=== PATIENT | female | born 1955 | race Caucasian/White ===

== ENCOUNTER → 2017-03-05 | Day surgery (SDC) | payer OTHER ==
[2017-02-27 09:13] VITALS: Ht 149.9 cm; Wt 64.1 kg
[~2017-03-05] VITALS: Ht 149.9 cm; Wt 64.1 kg
[~2017-03-05] MED LIST: ASPCH81X PO; ATOR-24 PO; BUDE1CAP6 PO; CETI10TA10 PO; CHOL1000 PO; CITA20TA4 PO; CYAN100020 PO; CYCL5TAB PO; FENTANYL CITRATE INJ 50 MCG/1 ML 2 ML VIAL ONE; FLUT0.15 NAE; FURO-85 PO; GABA-112 PO; GLC/500 PO; GLIP-199 PO; LIDOCAINE HCL 2% 2 ML VIAL (20MG/ML) ONE; LISI-789 PO; LNX125 PO; METHYLENE BLUE 0.5% 10 ML VIAL ONE; METO25TA56 PO; MIDAZOLAM HCL 1 MG/ML 2ML VIAL ONE; PHENYLEPHRINE 100MCG/ML 5ML SYR ONE; POTA20TA16 PO; PROPOFOL IV EMULSION 10 MG/ML 20 ML VIAL IV ONE; ROPI0.5T15 PO; ROPI1TAB PO; SODIUM CHLORIDE 0.9% 500ML 500 ML IV ONE; SPIR50TA2 PO; VNTHFA/IN INH
[2017-03-05 08:12] VITALS: TEMP 36.2
--- NOTE | 2017-03-05 08:54 | Endo History and Physical ---
History & Physical Date of Service: Mar 05, 2017. Chief Complaint: Crohns disease Referring Physician: Dr. Kellee Merida History of Present Illness Crohn's disease Past Medical History Gastrointestinal Disorder, Reflux, Heart Disease, CHF, Hypertension, COPD, Depression, [place] Past Surgical History Hx Cardiac Surgery: Yes (HEART CATH/NO STENTS) Hx Pacemaker: No Hx Abdominal Surgery: Yes ( X 2, HYSTERECTOMY, JAE, COLON RESECTION) Hx of Implantable Prosthesis: No Hx Post-Op Nausea and Vomiting: No Hx Cancer Surgery: No Hx Thoracic Surgery: No Hx Orthopedic: Yes (RT SHOULDER SX) Hx Urinary Tract Surgery: Yes (CYSTOSCOPY, STENT INSERTION, LITHOTRIPSY) Family History None Social History Smoking Status: Current Every Day Smoker Hx Substance Use: No Hx Alcohol Use: No Allergies Coded Allergies: Mercaptopurine (Verified Allergy, Intermediate, INFLAMED PANCREAS, 02/27/17 ) INFLAMED PANCREAS Nickel (Verified Allergy, Intermediate, breakout, 02/27/17) Erythromycin (Verified Allergy, Unknown, RASH, 02/27/17) Penicillins (Verified Allergy, Unknown, RASH, 02/27/17) Current Medications Reported Home Medications Medications Dose Route/Sig Max Daily Dose Days Date Category Dose Instructions Glucophage (Metformin Hcl) 500 Mg Tab 2 Tab PO QPM 02/27/17 Reported Glucophage (Metformin Hcl) 500 Mg Tab 500 Mg PO QAM 02/27/17 Reported Neurontin (Gabapentin) 100 Mg Cap 100 Mg PO TID 02/27/17 Reported Vitamin B12 (Cyanocobalamin) 1,000 Mcg Tab 1 Tab PO QPM 02/27/17 Reported Aspirin Chewable (Aspirin) 81 Mg Chew 2 Tab PO HS 02/27/17 Reported Ventolin Hfa (Albuterol) 200 Puffs/04124 Mcg Aers 2-4 Puffs INH Q6H PRN 02/27/17 Reported Flonase Allergy Relief (Fluticasone Propionate (Nasal)) 50 Mcg/Act Spr 1 [place] RUBEN DAILY PRN 02/27/17 Reported Zyrtec (Cetirizine Hcl) 10 Mg Tab 10 Mg PO QAM 02/27/17 Reported Entocort Ec (Budesonide) 3 Mg Cap 3 Cap PO TID 02/27/17 Reported Vitamin D3 (Cholecalciferol) 1,000 Unit Tab 1 Tab PO BID 02/27/17 Reported Requip (Ropinirole HCl) 1 Mg Tab 1 Mg PO HS 02/27/17 Reported Requip (Ropinirole HCl) 0.5 Mg Tab 0.5 Mg PO TID 02/27/17 Reported Glipizide Er (Glipizide) 10 Mg Tab 1 Tab PO BID 02/27/17 Reported Lopressor (Metoprolol Tartrate) 25 Mg Tab 25 Mg PO BID 02/27/17 Reported Flexeril (Cyclobenzaprine Hcl) 5 Mg Tab 5 Mg PO BID 02/27/17 Reported PRN Lipitor (Atorvastatin Calcium) 40 Mg Tab 40 Mg PO QPM 02/27/17 Reported Lasix (Furosemide) 20 Mg Tab 20 Mg PO QAM 02/27/17 Reported Klor-Con (Potassium Chloride) 20 Meq Tabcr 20 Meq PO QPM 02/27/17 Reported Aldactone (Spironolactone) 50 Mg Tab 50 Mg PO DAILY AFTERNOON 02/27/17 Reported Citalopram Hydrobromide 20 Mg Tab 1 Tab PO DAILY AFTERNOON 02/27/17 Reported Digoxin 0.125 Mg Tab 1 Tab PO QAM 02/27/17 Reported Zestril (Lisinopril) 2.5 Mg Tab 1 Tab PO QAM 02/27/17 Reported Vital Signs Weight (Kilograms): 64.09 Height (Feet): 4 Height (Inches): 11 Date Time Temp Pulse Resp B/P (MAP) Pulse Ox O2 Delivery O2 Flow Rate FiO2 03/05/17 08:12 36.2 98 20 92/69 (77) 94 Room Air Physical Exam General Appearance: no apparent distress Respiratory/Chest: Auscultation: breath sounds normal Cardiovascular: Heart Auscultation: RRR Abdomen: Inspection & Palpation: soft Assessment and Plan Crohn's disease - Cscopy
--- NOTE | 2017-03-05 10:23 | Anesthesiology Progress Note ---
Anesthesia Post Op Note Date & Time Mar 05, 2017 at 10:23 Vital Signs Pain Intensity: 0 Vital Signs Past 12 Hours Date Time Temp Pulse Resp B/P (MAP) Pulse Ox O2 Delivery O2 Flow Rate FiO2 03/05/17 10:18 87 18 105/81 (89) 96 Room Air 03/05/17 10:03 89 14 98/65 (76) 97 Room Air 03/05/17 08:12 36.2 98 20 92/69 (77) 94 Room Air Notes Mental Status: alert / awake / arousable, participated in evaluation Pt Amnestic to Procedure: Yes Nausea / Vomiting: adequately controlled Pain: adequately controlled Airway Patency, RR, SpO2: stable & adequate BP & HR: stable & adequate Hydration State: stable & adequate Anesthetic Complications: no major complications apparent
--- NOTE | 2017-03-05 10:23 | GI REPORT ---
Procedure Date: 03/05/2017 9:03 AM Procedure: Colonoscopy Indications: Follow-up of Crohn's disease Medicines: See the other procedure note for documentation of the administered medications Complications: No immediate complications. Estimated Blood Loss: Estimated blood loss: none. Procedure: Pre-Anesthesia Assessment: - ASA Grade Assessment: III - A patient with severe systemic disease. After I obtained informed consent, the scope was passed under direct vision. Throughout the procedure, the patient's blood pressure, pulse, and oxygen saturations were monitored continuously. The scope was introduced through the anus and advanced to the terminal ileum. The colonoscopy was performed without difficulty. The patient tolerated the procedure well. The quality of the bowel preparation was fair. Findings: The anus was stenotic upon ROMY, and a pediatric scope could not be advanced into the anus. An upper endoscope was used. There was a small hemorrhoid at the anus. A 5 mm polyp was found in the rectum. The polyp was sessile. The polyp was removed with a saline injection-lift technique using a hot snare. Resection and retrieval were complete. Two sessile polyps were found in the rectum. The polyps were 4 to 5 mm in size. These polyps were removed with a cold snare. Resection and retrieval were complete. The remainder of the colon was normal, although exam was limited by prep quality. There was an end-to-side ileocolonic anastamosis. There were multiple ileal ulcers. Biopsies taken from ileum. Chromoscopy was performed with Methylene blue, but was not successful due to prep quality. Biopsies taken every 10 cm in four quadrants throughout the colon. Impression: - Preparation of the colon was fair. - Anal stenosis. Hemorrhoid. - One 5 mm polyp in the rectum, removed using injection-lift and a hot snare. Resected and retrieved. - Two 4 to 5 mm polyps in the rectum, removed with a cold snare. Resected and retrieved. - Active ileitis. Unremarkable anastamosis. Recommendation: - Discharge patient to home. Follow up pathology results. Repeat exam in 1 year. Follow up in GI clinic for management of Crohn's disease. Laurent Horner M.D. Laurent Horner MD 03/05/2017 10:23:16 AM This report has been signed electronically. Note Initiated On: 03/05/2017 9:03 AM I attest to the content of the Intraoperative Record and orders documented therein, exceptions below
--- NOTE | 2017-03-05 10:24 | Discharge Instructions ---
Endoscopy Patient Instructions Date / Procedure(s) Performed Mar 05, 2017. Colonoscopy Allergy Information Coded Allergies: Mercaptopurine (Verified Allergy, Intermediate, INFLAMED PANCREAS, 02/27/17 ) INFLAMED PANCREAS Nickel (Verified Allergy, Intermediate, breakout, 02/27/17) Erythromycin (Verified Allergy, Unknown, RASH, 02/27/17) Penicillins (Verified Allergy, Unknown, RASH, 02/27/17) Discharge Date / Findings Mar 05, 2017. Fair prep. Multiple polyps, removed. Anal stenosis. Active ileal Crohn's. Medication Instructions Stopped Medication(s): Metformin was stopped. Patient only took digoxin, lopressor, and lisinopril this am. Resume metformin today. Provider Instructions Activity Restrictions - No exercising or heavy lifting for 24 hours. - Do not drink alcohol the day of the procedure. - Do not drive a car or operate machinery until the day after the procedure. - Do not make any important decisions or sign important papers in 24 hours after the procedure. Following Day: - Return to full activity which may include returning to work/school. Diet Start your diet with liquids and light foods (jello, soup, juice, toast). Then eat your usual diet if not nauseated. Treatment For Common After Affects For mild abdominal pain, bloating, or excessive gas: - Rest - Eat lightly - Lie on right side Follow-Up Information Follow up in GI clinic to manage medications for Crohn's Anesthesia Information What You Should Know You have had a procedure that required some medicine to reduce anxiety and discomfort. This treatment is called moderate sedation. After receiving the treatment, you may be sleepy, but you will be able to breathe on your own. The effects of the treatment may last for several hours. Follow these instructions along with Activity/Diet recommendations noted above: * Do NOT do anything where dizziness or clumsiness would be dangerous. * Rest quietly at home today, then you can be up and about tomorrow. * Have a responsible person stay with you the rest of today. * You may have had an I.V. today. If so, you may take the dressing off later today. Recommendations Call your doctor if: * Trouble breathing * Continuous vomiting for more than 24 hours * Temperature above 101 degrees * Severe abdominal pain or bloating * Pain not relieved by pain medicine ordered * There is increased drainage or redness from any incision * A large amount of rectal bleeding greater than 2-3 tablespoons. (If you had a polyp/s removed or have hemorrhoids, a small amount of blood - from the rectum is to be expected.) * You have any unanswered questions or concerns. IN THE EVENT OF A SERIOUS EMERGENCY, GO TO THE NEAREST EMERGENCY ROOM Your discharge instructions were prepared by provider Laurent Go. Patient Instructions Signature Page Sharmin Mcdermott Patient (or Guardian) Signature/Date: I have read and understand the instructions given to me by my caregivers. Caregiver/RN/Doctor Signature/Date: The above-named patient and/or guardian has received patient instructions on this date. + Original Patient Signature Page (only) stays with chart. Please make copy for patient.
[2017-03-05 10:33] VITALS: BP 104/58; PULSE 84; O2SAT 96
== END | disposition home or self-care (01) ==
LOC: C.GI 07:52
PROVIDERS: ATTEND Internal Medicine Gastroenterology
DX: K50.00 Crohn's disease of small intestine without complications (principal); K62.4 Stenosis of anus and rectum; K64.8 Other hemorrhoids; D12.8 Benign neoplasm of rectum; Z98.0 Intestinal bypass and anastomosis status; I11.0 Hypertensive heart disease with heart failure; I50.9 Heart failure, unspecified; I25.2 Old myocardial infarction; E11.9 Type 2 diabetes mellitus without complications; J44.9 Chronic obstructive pulmonary disease, unspecified; K21.9 Gastro-esophageal reflux disease without esophagitis; F32.9 Major depressive disorder, single episode, unspecified; F41.9 Anxiety disorder, unspecified; F17.200 Nicotine dependence, unspecified, uncomplicated; Z79.84 Long term (current) use of oral hypoglycemic drugs; Z79.899 Other long term (current) drug therapy; Z79.82 Long term (current) use of aspirin

== ENCOUNTER 2017-06-03 14:53 | Inpatient (IN) | payer OTHER ==
[~2017-06-03] VITALS: Ht 149.9 cm; Wt 64.0 kg
[~2017-06-03 14:53] MED LIST changes: -FENTANYL CITRATE INJ 50 MCG/1 ML 2 ML VIAL ONE; -LIDOCAINE HCL 2% 2 ML VIAL (20MG/ML) ONE; -METHYLENE BLUE 0.5% 10 ML VIAL ONE; -MIDAZOLAM HCL 1 MG/ML 2ML VIAL ONE; -PHENYLEPHRINE 100MCG/ML 5ML SYR ONE; +POTA-639 PO; -POTA20TA16 PO; -PROPOFOL IV EMULSION 10 MG/ML 20 ML VIAL IV ONE; -SODIUM CHLORIDE 0.9% 500ML 500 ML IV ONE
[2017-06-03] MEDS ORDERED: SODIUM CHLORIDE 0.9% 1000ML 1,000 ML IV STA ×2 (15:18→16:28)
[2017-06-03 15:48] LABS: BASO % 0.2 %; BASO ABS # 0.02 K/uL (0-0.2); EOS % 8.9 %; EOS ABS # 0.88 K/uL (0-0.5); HEMATOCRIT 36.4 % (37-47); HEMOGLOBIN 12.2 g/dL (12.0-16.0); IG# 0.08 K/uL (0.00-0.02); LYMPH % 22.5 %; LYMPH ABS # 2.23 K/uL (1.2-3.4); MEAN CELL VOLUME 96.8 fL (80-100); MEAN CORPUSCULAR HEMOGLOBIN 32.4 pg (25-34); MEAN CORPUSCULAR HGB CONC 33.5 g/dl (32-36); MEAN PLATELET VOLUME 9.6 fL (7.4-10.4); MONO % 2.9 %; MONO ABS # 0.29 K/uL (0.11-0.59); NEUT % 64.7 %; NEUT ABS # 6.42 K/uL (1.4-6.5); PLATELET COUNT 380 K/uL (130-400); RED CELL DISTRIBUTION WIDTH CV 14.1 % (11.5-14.5); RED CELL DISTRIBUTION WIDTH SD 50.2 fL (36.4-46.3); WHITE BLOOD COUNT 9.92 K/uL (4.8-10.8)
[2017-06-03 15:54] LABS: INR 0.9 (0.9-1.1)
--- NOTE | 2017-06-03 15:54 | DIAGNOSTIC IMAGING REPORT ---
CHEST ONE VIEW PORTABLE CLINICAL HISTORY: R mental status. Weakness. COMPARISON STUDY: March 09, 2015 FINDINGS: The cardiac and mediastinal contours are normal. There is no evidence of focal pulmonary consolidation. There is no evidence of failure. No pleural effusions are visualized.[ There is suspected left shoulder calcific tendinitis. IMPRESSION: No active disease in the chest. Electronically signed by: Quoc Sosa M.D. 06/03/2017 3:53 PM Dictated Date/Time: 06/03/2017 3:52 PM
[2017-06-03 15:58] LABS: ALBUMIN 3.3 gm/dl (3.4-5.0); ALT/SGPT 32 U/L (12-78); AST/SGOT 30 U/L (15-37); BLOOD UREA NITROGEN 60 mg/dl (7-18); CALCIUM 8.9 mg/dl (8.5-10.1); CARBON DIOXIDE 15 mmol/L (21-32); CREATININE 2.94 mg/dl (0.60-1.20); GLUCOSE 128 mg/dl (70-99); LIPASE 378 U/L (73-393); PTT PATIENT 50.2 SECONDS (21.0-31.0); SODIUM 138 mmol/L (136-145)
[2017-06-03 16:06] LABS: ALKALINE PHOSPHATASE 141 U/L (45-117); CKMB 0.9 ng/ml (0.5-3.6); TOTAL PROTEIN 7.8 gm/dl (6.4-8.2)
[2017-06-03] MEDS ORDERED: METO25TA4 PO (16:19)
[2017-06-03] MEDS ORDERED: ALBINS/ INH (16:19)
[2017-06-03] MEDS ORDERED: GLCSR/500 PO ×2 (16:19)
[2017-06-03] MEDS ORDERED: USTE45IN SQ (16:19)
--- NOTE | 2017-06-03 16:35 | EMERGENCY ROOM VISIT NOTE ---
History Report prepared by Ana M: Sharyn Pat Under the Supervision of: Dr. Maurisio Villagran D.O. First contact with patient: 15:16 Chief Complaint: HYPOTENSION Stated Complaint: MD REFERRING FOR HYPOTENSION,DEHYDRATION,LETHARGIC History of Present Illness The patient is a 61 year old female who presents to the Emergency Room with complaints of hypotension. Her states 1 week ago, the patient became very confused with date and time, which is unlike her. She was better the next day, but made an appointment with her PCP for the next week. She saw her doctor , Dr. Kellee Merida, earlier this afternoon. At her appointment, her blood pressure was low and she seemed dehydrated, so they referred her here to the ED. The patient denies any abdominal pain but states she has not had much an appetite and hasn't felt like drinking more than "16 ounces" of water a day. She complains of bilateral leg pain, weakness and fatigue. She admits to some LE swelling, but states "it comes and goes". She denies any chest pain or shortness of breath. 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 A total of 10 systems reviewed and were otherwise negative. Past Medical & Surgical Medical Problems: (1) Crohn disease (2) Kidney stone (3) Pancreatitis (4) PNA (pneumonia) (5) SBO (small bowel obstruction) Surgical Problems: (1) H/O: hysterectomy (2) Hx of cholecystectomy Family History Cancer Diabetes mellitus Gallbladder disease Heart disease Hypertension Social History Smoking Status: Current Every Day Smoker Alcohol Use: other Drug Use: none Marital Status: Housing Status: lives with family Occupation Status: employed Current/Historical Medications Scheduled Aspirin (Aspirin Chewable), 162 MG PO HS Atorvastatin (Lipitor), 40 MG PO QPM Cetirizine Hcl (Zyrtec), 10 MG PO QAM Cholecalciferol (Vitamin D3), 1,000 UNITS PO TID Citalopram Hydrobromide (Citalopram Hydrobromide), 20 MG PO DAILY AFTERNOON Cyanocobalamin (Vitamin B12), 1 TAB PO QPM Cyclobenzaprine Hcl (Flexeril), 5 MG PO BID Digoxin (Digoxin), 125 MCG PO QAM Furosemide (Lasix), 20 MG PO QAM Gabapentin (Neurontin), 100 MG PO TID Glipizide (Glipizide Er), 10 MG PO BID Lisinopril (Zestril), 2.5 MG PO QAM Metformin HCl (Metformin HCl ER), 500 MG PO QAM Metformin HCl (Metformin HCl ER), 1,000 MG PO QPM Metoprolol Succinate (Toprol Xl), 25 MG PO BID Potassium Ext Rel (Klor-Con), 30 MEQ PO QAM Ropinirole (Requip), 0.5 MG PO TID Ropinirole (Requip), 1 MG PO HS Spironolactone (Aldactone), 50 MG PO DAILY AFTERNOON Scheduled PRN Albuterol Hfa (Ventolin Hfa), 2-4 PUFFS INH Q6H PRN for Shortness of Breath Albuterol Sulf (Proventil 0.083% 2.5MG/3ML), 2.5 MG INH QID PRN for Shortness of Breath Fluticasone Propionate (Nasal) (Flonase Allergy Relief), 1 SPRAY RUBEN DAILY PRN for PRN Miscellaneous Medications Ustekinumab (Stelara), Unknown Dose Allergies Coded Allergies: Mercaptopurine (Verified Allergy, Intermediate, INFLAMED PANCREAS, 06/03/17 ) INFLAMED PANCREAS Nickel (Verified Allergy, Intermediate, breakout, 06/03/17) Erythromycin (Verified Allergy, Unknown, RASH, 06/03/17) Penicillins (Verified Allergy, Unknown, RASH, 06/03/17) Physical Exam Vital Signs Date Time Temp Pulse Resp B/P (MAP) Pulse Ox O2 Delivery O2 Flow Rate FiO2 06/03/17 15:51 92 80/48 06/03/17 15:33 90 88/50 06/03/17 15:27 89 87/48 06/03/17 15:19 90 06/03/17 15:01 36.3 99 18 73/53 99 Room Air Physical Exam CONSTITUTIONAL/VITAL SIGNS: Reviewed / noted above. GENERAL: Non-toxic in appearance. INTEGUMENTARY: Warm, dry, and [place]. HEAD: Normocephalic. EYES: without scleral icterus or trauma. ENT/OROPHARYNX: clear and moist. LYMPHADENOPATHY/NECK: Is supple without lymphadenopathy or meningismus. RESPIRATORY: Lungs clear and equal. CARDIOVASCULAR: Regular rate and rhythm. GI/ABDOMEN: Soft and nontender. No organomegaly or pulsatile mass. No rebound or guarding. Normal bowel sounds. EXTREMITIES: Warm and well perfused. BACK: No CVA tenderness. NEUROLOGICAL: Intact without focal deficits. PSYCHIATRIC: normal affect. MUSCULOSKELETAL: Normally developed with good muscle tone. Medical Decision & Procedures ER Provider Diagnostic Interpretation: Radiology results as stated below per my review and radiologist interpretation: CHEST ONE VIEW PORTABLE CLINICAL HISTORY: R mental status. Weakness. COMPARISON STUDY: March 09, 2015 FINDINGS: The cardiac and mediastinal contours are normal. There is no evidence of focal pulmonary consolidation. There is no evidence of failure. No pleural effusions are visualized. There is suspected left shoulder calcific tendinitis. IMPRESSION: No active disease in the chest. Electronically signed by: Quoc Sosa M.D. 06/03/2017 3:53 PM Laboratory Results 06/03/17 15:19 Red Blood Count 3.76, Mean Corpuscular Volume 96.8, Mean Corpuscular Hemoglobin 32.4, Mean Corpuscular Hemoglobin Concent 33.5, Mean Platelet Volume 9.6, Neutrophils (%) (Auto) 64.7, Lymphocytes (%) (Auto) 22.5, Monocytes (%) (Auto) 2.9, Eosinophils (%) (Auto) 8.9, Basophils (%) (Auto) 0.2, Neutrophils # (Auto) 6.42, Lymphocytes # (Auto) 2.23, Monocytes # (Auto) 0.29, Eosinophils # (Auto) 0.88, Basophils # (Auto) 0.02 06/03/17 15:19 Test 06/03/17 15:19 White Blood Count 9.92 K/uL (4.8-10.8) Red Blood Count 3.76 M/uL (4.2-5.4) Hemoglobin 12.2 g/dL (12.0-16.0) Hematocrit 36.4 % (37-47) Mean Corpuscular Volume 96.8 fL (80-100) Mean Corpuscular Hemoglobin 32.4 pg (25-34) Mean Corpuscular Hemoglobin Concent 33.5 g/dl (32-36) Platelet Count 380 K/uL (130-400) Mean Platelet Volume 9.6 fL (7.4-10.4) Neutrophils (%) (Auto) 64.7 % Lymphocytes (%) (Auto) 22.5 % Monocytes (%) (Auto) 2.9 % Eosinophils (%) (Auto) 8.9 % Basophils (%) (Auto) 0.2 % Neutrophils # (Auto) 6.42 K/uL (1.4-6.5) Lymphocytes # (Auto) 2.23 K/uL (1.2-3.4) Monocytes # (Auto) 0.29 K/uL (0.11-0.59) Eosinophils # (Auto) 0.88 K/uL (0-0.5) Basophils # (Auto) 0.02 K/uL (0-0.2) RDW Standard Deviation 50.2 fL (36.4-46.3) RDW Coefficient of Variation 14.1 % (11.5-14.5) Immature Granulocyte % (Auto) 0.8 % Immature Granulocyte # (Auto) 0.08 K/uL (0.00-0.02) Echinocytes 1+ Prothrombin Time 9.9 SECONDS (9.0-12.0) Prothromb Time International Ratio 0.9 (0.9-1.1) Activated Partial Thromboplast Time 50.2 SECONDS (21.0-31.0) Partial Thromboplastin Ratio 1.9 Anion Gap 9.0 mmol/L (3-11) Est Creatinine Clear Calc Drug Dose 15.7 ml/min Estimated GFR () 19.1 Estimated GFR (Non- 16.5 BUN/Creatinine Ratio 20.3 (10-20) Calcium Level 8.9 mg/dl (8.5-10.1) Magnesium Level 2.2 mg/dl (1.8-2.4) Total Bilirubin 0.2 mg/dl (0.2-1) Direct Bilirubin < 0.1 mg/dl (0-0.2) Aspartate Amino Transf (AST/SGOT) 30 U/L (15-37) Alanine Aminotransferase (ALT/SGPT) 32 U/L (12-78) Alkaline Phosphatase 141 U/L (45-117) Total Creatine Kinase 40 U/L (26-192) Creatine Kinase MB 0.9 ng/ml (0.5-3.6) Creatine Kinase MB Ratio 2.3 (0-3.0) Troponin I < 0.015 ng/ml (0-0.045) Total Protein 7.8 gm/dl (6.4-8.2) Albumin 3.3 gm/dl (3.4-5.0) Lipase 378 U/L (73-393) Thyroid Stimulating Hormone (TSH) 11.200 uIu/ml (0.300-4.500) Digoxin Level 1.6 ng/ml (0.8-2.0) Laboratory results as stated above per my review. Medications Administered Medications (Trade) Dose Ordered Sig/Sahil Route Start Time Stop Time Status Last Admin Dose Admin Sodium Chloride 1,000 ml @ 999 mls/hr Q1H1M STAT IV 06/03/17 15:18 18 16:18 DC 06/03/17 15:27 999 MLS/HR ECG Per My Interpretation Indication: weakness Rate (beats per minute): 88 Rhythm: normal sinus Findings: no ectopy, other (low voltage QRS, no ST elevation) ED Course 1524: Previous medical records were reviewed. The patient was evaluated in room A4. A complete history and physical examination was performed. 1518: NSS 1000 ml @ 999 mls/hr IV. 1620: I reevaluated the patient. She is resting comfortably. I discussed my recommendation she remain in the hospital for further evaluation and management and she and her family verbalized complete understanding and agreement. 1626: I discussed the patients case with GIO Crooks, [facility] Hospitalist. The patient will be further evaluated Medical Decision Differentials include: Acute coronary syndrome, myocardial infarction, CVA, TIA , anemia, infection, pneumonia, UTI, pyelonephritis, poor nutrition, dehydration , electrolyte disturbance, and hypoglycemia. This is a 61-year-old female who presents to the ED with a chief complaint of hypotension and dehydration. The patient was sent here from the PCPs office after being evaluated for generalized weakness and poor appetite as well as a little confusion last week. The patient has been on diuretics and has had poor appetite and decreased p.o. intake for about a week. She does have a history of diabetes but states that she checks her blood sugars twice a day and these have been okay. Her family member states that she drinks a maximum of 16 ounces of fluid a day. The patient has no other specific complaints. Her physical exam was relatively unremarkable. She was not symptomatic with her hypertension. CBC is unremarkable, BUN and creatinine are elevated at 60 and 2.9 respectively. Baseline creatinine based on 2014 was normal. Troponin was negative and TSH was elevated. The patient was hydrated with IV fluids. She was ordered 2 L normal saline. The patient was told the results of the test. She will be seen by the hospitalist for further inpatient evaluation and care. Medication Reconcilliation Current Medication List: was personally reviewed by me Blood Pressure Screening Patient's blood pressure: Low blood pressure Consults Time Called: 1610 Consulting Physician: GIO Crooks [facility] Hospitalist Returned Call: [phone] I [facility] the [facility] The patient will be further evaluated Impression Primary Impression: Acute renal failure Additional Impressions: Hypotension Dehydration Scribe Attestation The scribe's documentation has been prepared under my direction and personally reviewed by me in its entirety. I confirm that the note above accurately reflects all work, treatment, procedures, and medical decision making performed by me. Departure Information Dispostion Being Evaluated By Hospitalist Referrals Kellee Merida M.D. (PCP) Patient Instructions My [facility] Problem Qualifiers
[2017-06-03 17:33] VITALS: BMI 26.3
[2017-06-03] MEDS ORDERED: ACETAMINOPHEN 325 MG TAB PO PRN (18:00)
[2017-06-03] MEDS ORDERED: DEXTROSE 50% 50 ML SYR IV PRN (18:00)
[2017-06-03] MEDS ORDERED: ONDANSETRON INJ 2 MG/ML 2 ML VIAL IV PRN (18:00)
[2017-06-03] MEDS ORDERED: SODIUM CHLORIDE 0.9% 1000ML 1,000 ML IV SCH (18:00)
[2017-06-03] MEDS ORDERED: GLUCOSE 40% GEL 15 GM TUBE PO PRN (18:00)
[2017-06-03] MEDS ORDERED: GLUCOSE 10 TABS/TUBE PO PRN (18:00)
[2017-06-03] MEDS ORDERED: GLUCAGON FOR INJ 1 MG VIAL SQ PRN (18:00)
[2017-06-03] MEDS ORDERED: HYDROCORTISONE SOD SUCCINATE 100 MG/2 ML VIAL IV STA (18:34)
[2017-06-03] MEDS ORDERED: HYDROCORTISONE IV 100 MG in SYRINGE 0 ML IV ONE (19:45)
[2017-06-03] MEDS ORDERED: FLUTICASONE PROPIONATE NA SPR 16 GM BTL NAE PRN (19:45)
[2017-06-03] MEDS ORDERED: ALBUTEROL 0.083% NEBU SOLN 3 ML VIAL INH PRN (19:45)
[2017-06-03] MEDS ORDERED: ALBUTEROL HFA 8 GM INHALER INH PRN (19:45)
[2017-06-03] MEDS ORDERED: EMPA1TAB3 PO (19:50)
[2017-06-03] MEDS ORDERED: MAGN1TAB19 PO (19:50)
[2017-06-03] MEDS ORDERED: FLVHFA44 INH (19:50)
[2017-06-03] MEDS ORDERED: SPIR50TA3 PO (19:50)
[2017-06-03] MEDS ORDERED: ALEN70TA4 PO (19:50)
[2017-06-03] MEDS ORDERED: GLIP10TA9 PO (19:50)
[2017-06-03 20:00] VITALS: BP 89/58; PULSE 83; TEMP 36.3; O2SAT 99
--- NOTE | 2017-06-03 20:32 | History and Physical ---
History & Physical Date & Time of Service: Jun 03, 2017 at 19:56 Chief Complaint: Parth (Acute Kidney Injury) Primary Care Physician: Kellee Merida M.D. History of Present Illness Source: patient, spouse, clinic records, hospital records 61-year-old female presents to the ER with concerns about low blood pressure and severe fatigue over the last week. She reports sleeping multiple times a day with lethargy and reports some confusion that resolved within 30 minutes 2 times last week. She is currently alert and appropriate. She was seen by her primary care provider earlier today who was concerned based on her symptoms and her blood pressure in the 80s systolic. She also reports dry skin that is itchy, significant cold intolerance, 5 pound weight loss, poor p.o. intake with lack of appetite, painful muscles in the lower legs bilaterally all over the last week. She denies any medication changes. She denies any fevers or chills, no abdominal pain. She has a history of Crohn's disease with chronic diarrhea that is stable without changes. She had one episode of vomiting while swallowing her pills yesterday but otherwise no nausea and vomiting. She reports insomnia secondary to sleeping most of the day. In the ER blood pressures remaining in the 80 systolic despite 2 L fluid bolus of normal saline. Lab results reveal a normal sodium, normal H&H, bicarb 15, BUN 60, creatinine 2.94 with a normal baseline, glucose 128. TSH was drawn and was 11. Free T4 was added and was low at 0.6. A cortisol level was randomly drawn and was 18. Past Medical/Surgical History Medical Problems: (1) CAD (coronary artery disease) Status: Chronic (2) COPD (chronic obstructive pulmonary disease) Status: Chronic (3) Crohn disease Status: Chronic (4) DMII (diabetes mellitus, type 2) Status: Chronic (5) Hemorrhoids Status: Chronic (6) Kidney stone Status: Resolved (7) NICM (nonischemic cardiomyopathy) Status: Chronic (8) Pancreatitis Status: Resolved (9) SBO (small bowel obstruction) Status: Resolved (10) Tobacco abuse Status: Chronic Surgical Problems: (1) H/O: hysterectomy Status: Resolved (2) History of colon resection Status: Resolved (3) Hx of cholecystectomy Status: Resolved Family History Cancer Diabetes mellitus Gallbladder disease Heart disease Hypertension Social History Smoking Status: Current Every Day Smoker (1 pack per day) Smokeless Tobacco Use: No Alcohol Use: none Drug Use: none Marital Status: Occupational Status: retired Immunizations History of Influenza Vaccine: No Influenza Vaccine Date: Nov 12, 2016 History of Tetanus Vaccine?: Yes Tetanus Immunization Date: Apr 25, 2017 History of Pneumococcal: Yes Pneumococcal Date: Sep 25, 2012 History of Hepatitis B Vaccine: Yes Hepatitis Immunization Date: May 27, 2017 Allergies Coded Allergies: Mercaptopurine (Verified Allergy, Intermediate, INFLAMED PANCREAS, 06/03/17 ) INFLAMED PANCREAS Nickel (Verified Allergy, Intermediate, breakout, 06/03/17) Erythromycin (Verified Allergy, Unknown, RASH, 06/03/17) Penicillins (Verified Allergy, Unknown, RASH, 06/03/17) Home Medications Scheduled Alendronate Sodium (Fosamax), 70 MG PO WK Aspirin (Aspirin Chewable), 162 MG PO HS Atorvastatin (Lipitor), 40 MG PO QPM Cetirizine Hcl (Zyrtec), 10 MG PO QAM Cholecalciferol (Vitamin D3), 2,000 UNITS PO DAILY Citalopram Hydrobromide (Citalopram Hydrobromide), 20 MG PO DAILY AFTERNOON Cyanocobalamin (Vitamin B12), 1 TAB PO QPM Digoxin (Digoxin), 125 MCG PO QAM Empagliflozin (Jardiance), 25 MG PO DAILY Fluticasone Propionate (Flovent Hfa), 2 PUFFS INH BID Furosemide (Lasix), 20 MG PO QAM Gabapentin (Neurontin), 100 MG PO TID Glipizide (Glipizide Er), 10 MG PO QAM Glipizide (Glucotrol), 5 MG PO QDD Lisinopril (Zestril), 2.5 MG PO QAM Magnesium Oxide (Mg Supplement (Magnesium Oxide), 400 MG PO DAILY Metformin HCl (Metformin HCl ER), 500 MG PO QAM Metformin HCl (Metformin HCl ER), 1,000 MG PO QPM Metoprolol Succinate (Toprol Xl), 25 MG PO BID Potassium Ext Rel (Klor-Con), 30 MEQ PO QAM Ropinirole (Requip), 0.5 MG PO TID Ropinirole (Requip), 1 MG PO HS Spironolactone (Aldactone), 50 MG PO DAILY AFTERNOON Ustekinumab (Stelara), 90 MG SQ every 8 weeks Scheduled PRN Albuterol Hfa (Ventolin Hfa), 2-4 PUFFS INH Q6H PRN for Shortness of Breath Albuterol Sulf (Proventil 0.083% 2.5MG/3ML), 2.5 MG INH QID PRN for Shortness of Breath Cyclobenzaprine Hcl (Flexeril), 5 MG PO BID PRN for Restless legs syndrome Fluticasone Propionate (Nasal) (Flonase Allergy Relief), 1 SPRAY RUBEN DAILY PRN for PRN Review of Systems At least 10 systems were reviewed and negative except as indicated in HPI above Physical Exam Vital Signs Date Time Temp Pulse Resp B/P (MAP) Pulse Ox O2 Delivery O2 Flow Rate FiO2 06/03/17 18:47 85 82/46 98 06/03/17 18:05 85 87/51 99 Room Air 06/03/17 17:33 Room Air 06/03/17 16:45 85 81/52 06/03/17 15:51 92 80/48 06/03/17 15:33 90 88/50 06/03/17 15:27 89 87/48 06/03/17 15:19 90 06/03/17 15:01 36.3 99 18 73/53 99 Room Air General Appearance: WD/WN, no apparent distress Head: normocephalic, atraumatic Eyes: normal inspection, PERRL, sclerae normal ENT: normal ENT inspection, pharynx normal, + pertinent finding Neck: supple (Mucous membrane is moist), no adenopathy, thyroid normal, no JVD , trachea midline Respiratory/Chest: chest non-tender, lungs clear, normal breath sounds, no respiratory distress, no accessory muscle use Cardiovascular: regular rate, rhythm, no edema, no gallop, no JVD, no murmur, normal peripheral pulses Abdomen/GI: normal bowel sounds, non tender, soft, no organomegaly Back: normal inspection Extremities/Musculoskelatal: normal inspection, + pertinent finding (Pain to palpation of lower posterior extremities bilaterally (soleus muscle-not including achilles tendon). 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, no motor/sensory deficits, alert, normal mood/affect, oriented x 3 Skin: normal color, warm/dry, no rash Diagnostics Laboratory Results 06/03/17 15:19 Red Blood Count 3.76, Mean Corpuscular Volume 96.8, Mean Corpuscular Hemoglobin 32.4, Mean Corpuscular Hemoglobin Concent 33.5, Mean Platelet Volume 9.6, Neutrophils (%) (Auto) 64.7, Lymphocytes (%) (Auto) 22.5, Monocytes (%) (Auto) 2.9, Eosinophils (%) (Auto) 8.9, Basophils (%) (Auto) 0.2, Neutrophils # (Auto) 6.42, Lymphocytes # (Auto) 2.23, Monocytes # (Auto) 0.29, Eosinophils # (Auto) 0.88, Basophils # (Auto) 0.02 06/03/17 15:19 Test 06/03/17 15:19 06/03/17 17:20 06/03/17 20:06 White Blood Count 9.92 K/uL (4.8-10.8) Red Blood Count 3.76 M/uL (4.2-5.4) Hemoglobin 12.2 g/dL (12.0-16.0) Hematocrit 36.4 % (37-47) Mean Corpuscular Volume 96.8 fL (80-100) Mean Corpuscular Hemoglobin 32.4 pg (25-34) Mean Corpuscular Hemoglobin Concent 33.5 g/dl (32-36) Platelet Count 380 K/uL (130-400) Mean Platelet Volume 9.6 fL (7.4-10.4) Neutrophils (%) (Auto) 64.7 % Lymphocytes (%) (Auto) 22.5 % Monocytes (%) (Auto) 2.9 % Eosinophils (%) (Auto) 8.9 % Basophils (%) (Auto) 0.2 % Neutrophils # (Auto) 6.42 K/uL (1.4-6.5) Lymphocytes # (Auto) 2.23 K/uL (1.2-3.4) Monocytes # (Auto) 0.29 K/uL (0.11-0.59) Eosinophils # (Auto) 0.88 K/uL (0-0.5) Basophils # (Auto) 0.02 K/uL (0-0.2) RDW Standard Deviation 50.2 fL (36.4-46.3) RDW Coefficient of Variation 14.1 % (11.5-14.5) Immature Granulocyte % (Auto) 0.8 % Immature Granulocyte # (Auto) 0.08 K/uL (0.00-0.02) Echinocytes 1+ Prothrombin Time 9.9 SECONDS (9.0-12.0) Prothromb Time International Ratio 0.9 (0.9-1.1) Activated Partial Thromboplast Time 50.2 SECONDS (21.0-31.0) Partial Thromboplastin Ratio 1.9 Anion Gap 9.0 mmol/L (3-11) Est Creatinine Clear Calc Drug Dose 15.7 ml/min Estimated GFR () 19.1 Estimated GFR (Non- 16.5 BUN/Creatinine Ratio 20.3 (10-20) Calcium Level 8.9 mg/dl (8.5-10.1) Magnesium Level 2.2 mg/dl (1.8-2.4) Total Bilirubin 0.2 mg/dl (0.2-1) Direct Bilirubin < 0.1 mg/dl (0-0.2) Aspartate Amino Transf (AST/SGOT) 30 U/L (15-37) Alanine Aminotransferase (ALT/SGPT) 32 U/L (12-78) Alkaline Phosphatase 141 U/L (45-117) Total Creatine Kinase 40 U/L (26-192) Creatine Kinase MB 0.9 ng/ml (0.5-3.6) Creatine Kinase MB Ratio 2.3 (0-3.0) Troponin I < 0.015 ng/ml (0-0.045) Total Protein 7.8 gm/dl (6.4-8.2) Albumin 3.3 gm/dl (3.4-5.0) Lipase 378 U/L (73-393) Thyroid Stimulating Hormone (TSH) 11.200 uIu/ml (0.300-4.500) Free Thyroxine 0.65 ng/dl (0.80-1.60) Random Cortisol 18.15 mcg/dl Digoxin Level 1.6 ng/ml (0.8-2.0) Hepatitis C Antibody Screen NEG (NEG) Urine Color YELLOW Urine Appearance CLEAR (CLEAR) Urine pH 5.0 (4.5-7.5) Urine Specific [place] 1.013 (1.000-1.030) Urine Protein NEG (NEG) Urine Glucose (UA) 2+ (NEG) Urine Ketones NEG (NEG) Urine Occult Blood NEG (NEG) Urine Nitrite NEG (NEG) Urine Bilirubin NEG (NEG) Urine Urobilinogen NEG (NEG) Urine Leukocyte Esterase SMALL (NEG) Urine WBC (Auto) 5-10 /hpf (0-5) Urine RBC (Auto) 0-4 /hpf (0-4) Urine Hyaline Casts (Auto) 1-5 /lpf (0-5) Urine Epithelial Cells (Auto) 20-30 /lpf (0-5) Urine Bacteria (Auto) NEG (NEG) Date/Time Source Procedure Growth Status 06/03/17 17:20 Stool C.difficile Toxin B Gene (PCR) - Final No C. difficile toxin B gene detected Complete Results Past 24 Hours Test 06/03/17 15:19 06/03/17 17:20 Range/Units White Blood Count 9.92 4.8-10.8 K/uL Red Blood Count 3.76 4.2-5.4 M/uL Hemoglobin 12.2 12.0-16.0 g/dL Hematocrit 36.4 37-47 % Mean Corpuscular Volume 96.8 80-100 fL Mean Corpuscular Hemoglobin 32.4 25-34 pg Mean Corpuscular Hemoglobin Concent 33.5 32-36 g/dl Platelet Count 380 130-400 K/uL Mean Platelet Volume 9.6 7.4-10.4 fL Neutrophils (%) (Auto) 64.7 % Lymphocytes (%) (Auto) 22.5 % Monocytes (%) (Auto) 2.9 % Eosinophils (%) (Auto) 8.9 % Basophils (%) (Auto) 0.2 % Neutrophils # (Auto) 6.42 1.4-6.5 K/uL Lymphocytes # (Auto) 2.23 1.2-3.4 K/uL Monocytes # (Auto) 0.29 0.11-0.59 K/uL Eosinophils # (Auto) 0.88 0-0.5 K/uL Basophils # (Auto) 0.02 0-0.2 K/uL RDW Standard Deviation 50.2 36.4-46.3 fL RDW Coefficient of Variation 14.1 11.5-14.5 % Immature Granulocyte % (Auto) 0.8 % Immature Granulocyte # (Auto) 0.08 0.00-0.02 K/uL Echinocytes 1+ Prothrombin Time 9.9 9.0-12.0 SECONDS Prothromb Time International Ratio 0.9 0.9-1.1 Activated Partial Thromboplast Time 50.2 21.0-31.0 SECONDS Partial Thromboplastin Ratio 1.9 Sodium Level 138 136-145 mmol/L Potassium Level 5.0 3.5-5.1 mmol/L Chloride Level 115 98-107 mmol/L Carbon Dioxide Level 15 21-32 mmol/L Anion Gap 9.0 3-11 mmol/L Blood Urea Nitrogen 60 7-18 mg/dl Creatinine 2.94 0.60-1.20 mg/dl Est Creatinine Clear Calc Drug Dose 15.7 ml/min Estimated GFR () 19.1 Estimated GFR (Non- 16.5 BUN/Creatinine Ratio 20.3 10-20 Random Glucose 128 70-99 mg/dl Calcium Level 8.9 8.5-10.1 mg/dl Magnesium Level 2.2 1.8-2.4 mg/dl Total Bilirubin 0.2 0.2-1 mg/dl Direct Bilirubin < 0.1 0-0.2 mg/dl Aspartate Amino Transf (AST/SGOT) 30 15-37 U/L Alanine Aminotransferase (ALT/SGPT) 32 12-78 U/L Alkaline Phosphatase 141 45-117 U/L Total Creatine Kinase 40 26-192 U/L Creatine Kinase MB 0.9 0.5-3.6 ng/ml Creatine Kinase MB Ratio 2.3 0-3.0 Troponin I < 0.015 0-0.045 ng/ml Total Protein 7.8 6.4-8.2 gm/dl Albumin 3.3 3.4-5.0 gm/dl Lipase 378 73-393 U/L Thyroid Stimulating Hormone (TSH) 11.200 0.300-4.500 uIu/ml Free Thyroxine 0.65 0.80-1.60 ng/dl Random Cortisol 18.15 mcg/dl Digoxin Level 1.6 0.8-2.0 ng/ml Hepatitis C Antibody Screen NEG NEG Urine Color YELLOW Urine Appearance CLEAR CLEAR Urine pH 5.0 4.5-7.5 Urine Specific [place] 1.013 1.000-1.030 Urine Protein NEG NEG Urine Glucose (UA) 2+ NEG Urine Ketones NEG NEG Urine Occult Blood NEG NEG Urine Nitrite NEG NEG Urine Bilirubin NEG NEG Urine Urobilinogen NEG NEG Urine Leukocyte Esterase SMALL NEG Urine WBC (Auto) 5-10 0-5 /hpf Urine RBC (Auto) 0-4 0-4 /hpf Urine Hyaline Casts (Auto) 1-5 0-5 /lpf Urine Epithelial Cells (Auto) 20-30 0-5 /lpf Urine Bacteria (Auto) NEG NEG Microbiology Results 06/03/17 C.difficile Toxin B Gene (PCR) - Final, Complete No C. difficile toxin B gene detected Diagnostic Radiology CHEST ONE VIEW PORTABLE CLINICAL HISTORY: R mental status. Weakness. COMPARISON STUDY: March 09, 2015 FINDINGS: The cardiac and mediastinal contours are normal. There is no evidence of focal pulmonary consolidation. There is no evidence of failure. No pleural effusions are visualized.[ There is suspected left shoulder calcific tendinitis. IMPRESSION: No active disease in the chest. Normal EKG (SR88) Impression Assessment and Plan 61 yo F with fatigue, lethargy, cold intolerance for one week presents from clinic with hypotension and acute renal failure. 1. Hypotension, fatigue and lethargy-etiologies include but not limited to new onset hypothyroidism (fatigue, lethargy, cold intol), adrenal insufficiency ( muscle aches, dry skin, hypotension, lethargy), acute renal failure, dehydration. Spoke with Dr. Freeman in Endo at [place] by phone and discussed case. He recommended stress dose steroids now with transition to Cortef BID tomorrow while allowing synthroid time to kick in. Starting Synthroid at 50mcg dose with age >50yrs and watch for clinical improvement. Cont fluids at this time as urine is concentrated and patient clinically appears dehydrated 2/2 intolerance of PO including adequate water while on diuretics as outpatient. Will be careful not to overload her in setting of NICM. Random cortisol was normal. Endocrine consult was placed. UPDATE: Discussed poor response of BP to Cortef with Dr. Freeman who suggested she may be in shock from sepsis or some other reason. Clinically, there is no clear reason for shock as she has no S/Sx of infection, denies abdominal pain, she is mentating clearly, has no JVD on exam and no muffled heart sounds with no CP, SOB, EKG changes or troponin elevation. She does have a h/o Chron's disease so GI fistula is a possibility, but she states no changes in output of her diarrhea. Will culture her and start empiric antibiotics, especially as she is on immunotherapy. 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 Discussed case with ICU staff on overnight who has accepted the patient. Of note, prior blood pressures run in the 90s systolic on prior admissions, so this also may not be far off from her baseline. 2. PARTH-likely 2/2 dehydration. Cont IVF and monitor repeat PRP in am. 3. Metabolic acidosis-acute as pH is 7.1 on VBG. Bicarb is 15. Discussed case with Nephro who recommended trial of bicarb. Fluids were switched to 1/2 NS + 75Meq bicarb. Initially no anion gap was present but will recheck again now, and also order serum osmolality to calculate osmolar gap out of concern for possible ingestion, although this seems clinically less likely. ?? Other etiologies include but are not limited to consistent hypoperfusion with this low BP as the reason for the acidosis vs her PARTH (outpatient records unavailable at this time to review lab trends) vs some element of bicarb loss from chronic diarrhea. 4. NICM-chronic, stable. No signs/symptoms of heart failure at this time. Medical management except will hold dig with level >1, hold spironolactone, lasix, lis and Toprol in setting of hypotension. Updated TTE ordered for am. 5. Smoker-declined Nicotine replacement in hospital. Has not started outpatient Chantix regimen. \ 6. Chron's disease-appears to be stable, no change in GI symptoms or abdominal pain. She is taking Stelera as outpatient with next dose due June 28. 7. RLS-cont requip per outpatient regimen 8. CAD-no h/o PCI, mild per prior cath in past, med management as above. 9. DMII-hold outpatient PO meds, cont ISS/Lantus and #3 scale while on high dose steroids above. A1C in am. BSG was 63 on the floor so Lantus was held and may be resumed per ICU staff. 10. Osteoporosis-cont Fosamax DVT proph-Heparin Full Code Dispo-she was initially placed on telemetry, and then sent to ICU approx 4 hours later as above. I asked the patient if she would like me to update her and she said no because he was sleeping. Discussed case with overnight hospitalist, also. Karen Gregory DO [facility] Hospitalist Advanced Directives Existing Living Will: No Existing Power of Garnett Mechanic: No Resuscitation Status VTE Prophylaxis Will order VTE Prophylaxis: Yes
[2017-06-03] MEDS ORDERED: ASPIRIN 81 MG ECTAB PO SCH (21:00)
[2017-06-03] MEDS: INSULIN ASPART 100 UNITS/ML 3 ML PEN SC SCH (21:00)
[2017-06-03] MEDS ORDERED: INSULIN GLARGINE SOLOSTAR 100 UNITS/ML 3 ML PEN SC SCH ×2 (21:00)
[2017-06-03] MEDS ORDERED: ROPINIROLE HCL 1 MG TAB PO SCH (21:00)
[2017-06-03] MEDS: GABAPENTIN 100 MG CAP PO SCH (21:04)
[2017-06-03] MEDS: ATORVASTATIN 40 MG TAB PO SCH (21:04)
[2017-06-03] MEDS: ROPINIROLE HCL 0.25 MG TAB PO SCH (21:05)
[2017-06-03] MEDS: FLUTICASONE PROP HFA INH 44 MCG INHALER INH SCH (21:06)
[2017-06-03] MEDS: HEPARIN SOD 5000 UNIT/0.5 ML CARP SQ SCH (22:17)
[2017-06-04] VITALS (24 sets, daily range): BP systolic 85–113; BP diastolic 40–65; PULSE 82–101; TEMP 36.3–36.8; O2SAT 95–99; BMI 27.2
[2017-06-04] MEDS ORDERED: VANCOMYCIN IV 1,250 MG in SODIUM CHLORIDE 0.9% 250ML 250 ML IV SCH (00:30)
--- NOTE | 2017-06-04 00:37 | Critical Care Consultation ---
Critical Care Consultation Date of Consultation: Jun 04, 2017. Attending Physician: Isabella Morgan M.D. Reason for Consultation: 61-year-old female with hypotension and acute kidney injury requiring increasing IV fluid boluses as well as corticosteroid administration for suspected adrenal insufficiency. History of Present Illness Patient is a 61-year-old female with a significant past medical history for mild coronary artery disease, COPD, Crohn's disease, diabetes mellitus type 2, and nonischemic cardiomyopathy who reports increasing lethargy, lightheadedness , as well as episodes of confusion over the past week. She states that last Saturday, after a GI appointment, she had gone to visit her ailing father who was recently placed in a snf ([facility]) at the beginning of this month. After this visit, she and her went out to eat at the [facility]. She admits that she had not much of an appetite after her appointment and visiting with her father. Upon arriving home Saturday, she reports that her became frustrated with her as she apparently had put on her coat and stated that she was going to run some errands. He was concerned because she continued to repeat herself. The next thing that she remembers is her being frustrated with her and she was uncertain as to why. She had no recollection of the event. Her did contact her sister who had initially encouraged her to seek emergency care, which she declined as she felt a return to normal mental status. She had seen her sister on Saturday and her sister was confused as she reports that she felt as though she was not focusing during conversations. Patient makes no comment to this and is uncertain as to her sister's concern. She did agree to set up an outpatient appointment with her primary care provider. She admittedly reports that she has had increasing lethargy and has been sleeping more than usual, but was unconcerned. In addition to her father being recently placed in a snf , she reports that there is also added family drama has 2 younger siblings are blaming her sister for stealing from her father. She has had to attend 3 separate hearings with an sql analyst over the past few weeks. The patient admits that this is added to her stress level. In regards to her eating and drinking habits, she admits that she does not drink much water and that her primary source of hydration is from Pepsi. She reports drinking at least 2, 16 ounce bottles and 2-3 cans of Pepsi per day. This is not new to her and the quantity has not changed recently. She explains that she replaced heavy alcohol use in the past with heavy amounts of soda. While her soda intake has not changed over the past week, she does admit that she has not eaten well and equates it to generally feeling unwell and the added stress of her family situation. She admits to lightheadedness with changes in position. She has not fallen or lost consciousness. She has experienced this previously, so she reports that she was unconcerned. She does admit that on Saturday evening she noticed that she had not urinated for most of the day. She became concerned and reports that after she finished her Pepsi on ice, she did add "a little water" to the bottom of the glass to help with hydration. She reports only having urinated 2 times on Saturday. She does experience 2-5 episodes of diarrhea per day which she equates to her Crohn's disease. As she has had watery stools, she reports that she felt as though this was adequate fluid output despite not having urinated. Patient was recently diagnosed with diabetes type 2 and placed on oral medications, specifically metformin. She reports no significant changes in her medications recently. In addition, the patient takes 20 mg of Lasix daily for diagnosis of nonischemic cardiomyopathy. She has experienced CHF in the past secondary to volume overload, however she reports that she has not experienced this recently. The patient has continued to take her Lasix and metformin as well as other diabetic medications throughout this past week. Typically, the patient admits multiple episodes of urination throughout the early portion of the day after taking her Lasix with tapering off before bed. Her only new medication was her first Stelara infusion this past Saturday. On presentation to the primary care provider today, the patient reports that she felt "fine" however the nurse was unable to obtain a blood pressure in triage. Eventually, they are able to obtain low systolic blood pressure readings which prompted PCP to direct the patient to the emergency department for further evaluation and management of her hypotension. Despite this hypotension, the patient denies any headaches, slurred speech, facial droop, unilateral weakness/numbness, chest pain, palpitations, shortness of breath on exertion, nausea, vomiting, abdominal pain, hematochezia, melena, hematuria, or dysuria. Patient does admit that in route to the primary care provider, she did have photosensitivity as well as bilateral flashes of her eyes. This did seem to resolve as she has had hydration and is not experienced over the last several hours. She does complain of persistent skin itching/irritation but reports that she has dry skin from her Eczema. Patient is a 61-year-old female who retired approximately 2 years ago after 13 years of working at [employer]. She lives at home with her . She denies any alcohol use. She is a daily smoker. Past Medical/Surgical History Medical Problems: (1) PARTH (acute kidney injury) (2) CAD (coronary artery disease) (3) COPD (chronic obstructive pulmonary disease) (4) Crohn disease (5) DMII (diabetes mellitus, type 2) (6) Hemorrhoids (7) Kidney stone (8) NICM (nonischemic cardiomyopathy) (9) Pancreatitis (10) Pancreatitis (11) PNA (pneumonia) (12) SBO (small bowel obstruction) (13) Tobacco abuse Surgical Problems: (1) H/O: hysterectomy (2) History of colon resection (3) Hx of cholecystectomy Family History Cancer Diabetes mellitus Gallbladder disease Heart disease Hypertension Reviews - CAD Social History Smoking Status: Current Every Day Smoker (1 pack per day) Smokeless Tobacco Use: No Alcohol Use: none Drug Use: none Marital Status: Housing Status: lives with family Occupation Status: retired Allergies Coded Allergies: Mercaptopurine (Verified Allergy, Intermediate, INFLAMED PANCREAS, 06/03/17 ) INFLAMED PANCREAS Nickel (Verified Allergy, Intermediate, breakout, 06/03/17) Erythromycin (Verified Allergy, Unknown, RASH, 06/03/17) Penicillins (Verified Allergy, Unknown, RASH, 06/03/17) Home Medications Scheduled Alendronate Sodium (Fosamax), 70 MG PO WK Aspirin (Aspirin Chewable), 162 MG PO HS Atorvastatin (Lipitor), 40 MG PO QPM Cetirizine Hcl (Zyrtec), 10 MG PO QAM Cholecalciferol (Vitamin D3), 2,000 UNITS PO DAILY Citalopram Hydrobromide (Citalopram Hydrobromide), 20 MG PO DAILY AFTERNOON Cyanocobalamin (Vitamin B12), 1 TAB PO QPM Digoxin (Digoxin), 125 MCG PO QAM Empagliflozin (Jardiance), 25 MG PO DAILY Fluticasone Propionate (Flovent Hfa), 2 PUFFS INH BID Furosemide (Lasix), 20 MG PO QAM Gabapentin (Neurontin), 100 MG PO TID Glipizide (Glipizide Er), 10 MG PO QAM Glipizide (Glucotrol), 5 MG PO QDD Lisinopril (Zestril), 2.5 MG PO QAM Magnesium Oxide (Mg Supplement (Magnesium Oxide), 400 MG PO DAILY Metformin HCl (Metformin HCl ER), 500 MG PO QAM Metformin HCl (Metformin HCl ER), 1,000 MG PO QPM Metoprolol Succinate (Toprol Xl), 25 MG PO BID Potassium Ext Rel (Klor-Con), 30 MEQ PO QAM Ropinirole (Requip), 0.5 MG PO TID Ropinirole (Requip), 1 MG PO HS Spironolactone (Aldactone), 50 MG PO DAILY AFTERNOON Ustekinumab (Stelara), 90 MG SQ every 8 weeks Scheduled PRN Albuterol Hfa (Ventolin Hfa), 2-4 PUFFS INH Q6H PRN for Shortness of Breath Albuterol Sulf (Proventil 0.083% 2.5MG/3ML), 2.5 MG INH QID PRN for Shortness of Breath Cyclobenzaprine Hcl (Flexeril), 5 MG PO BID PRN for Restless legs syndrome Fluticasone Propionate (Nasal) (Flonase Allergy Relief), 1 SPRAY RUBEN DAILY PRN for PRN Current Inpatient Medications Current Inpatient Medications Medications (Trade) Dose Ordered Sig/Sahil Route Start Time Stop Time Status Last Admin Dose Admin Acetaminophen (Tylenol Tab) 650 mg Q4H PRN PO 06/03/17 18:00 07/03/17 17:59 Ondansetron HCl (Zofran Inj) 4 mg Q6H PRN IV 06/03/17 18:00 07/03/17 17:59 Insulin Aspart (novoLOG ASPART) SLIDING SCALE If C... ACHS SC 06/03/17 21:00 07/03/17 20:59 Glucose (Glucose 40% Gel) 15-30 GRAMS 15 GRAMS... UD PRN PO 06/03/17 18:00 07/03/17 17:59 Glucose (Glucose Chew Tab) 4-8 Tablets 4 Tabl... UD PRN PO 06/03/17 18:00 07/03/17 17:59 Dextrose (Dextrose 50% 50ML Syringe) 25-50ML OF 50% DW IV FOR... UD PRN IV 06/03/17 18:00 07/03/17 17:59 Glucagon (Glucagon Inj) 1 mg UD PRN SQ 06/03/17 18:00 07/03/17 17:59 Levothyroxine Sodium (Synthroid Tab) 50 mcg DAILYBB PO 06/04/17 06:00 07/04/17 06:29 Albuterol (Ventolin Hfa Inhaler) 2 puffs Q6H PRN INH 06/03/17 19:45 07/03/17 19:44 Albuterol Sulfate (Ventolin 0.083% 2.5MG/3ML Neb) 2.5 mg QID PRN INH 06/03/17 19:45 07/03/17 19:44 Alendronate Sodium (Fosamax Tab) 70 mg We@0630 PO 06/05/17 06:30 07/05/17 06:29 Aspirin (Ecotrin Tab) 162 mg HS PO 06/03/17 21:00 07/03/17 20:59 06/03/17 21:04 162 MG Atorvastatin Calcium (Lipitor Tab) 40 mg QPM PO 06/03/17 21:00 07/03/17 20:59 06/03/17 21:04 40 MG Cetirizine HCl (zyrTEC TAB) 10 mg QAM PO 06/04/17 09:00 07/04/17 08:59 Cholecalciferol (Vitamin D Tab) 2,000 inter.unit DAILY PO 06/04/17 09:00 07/04/17 08:59 Citalopram Hydrobromide (celeXA TAB) 20 mg DAILY PO 06/04/17 09:00 07/04/17 08:59 Cyclobenzaprine HCl (Flexeril Tab) 5 mg BID PRN PO 06/03/17 19:45 07/03/17 19:44 Fluticasone Propionate (Flovent Hfa 44MCG Inhaler) 2 puffs BID INH 06/03/17 21:00 07/03/17 20:59 06/03/17 21:06 2 PUFFS Fluticasone Propionate (Flonase Nasal [place]) 1 sprays DAILY PRN RUBEN 06/03/17 19:45 07/03/17 19:44 Gabapentin (Neurontin Cap) 100 mg TID PO 06/03/17 21:00 07/03/17 20:59 06/03/17 21:04 100 MG Ropinirole HCl (Requip Tab) 0.5 mg TID PO 06/03/17 21:00 07/03/17 20:59 06/03/17 21:05 0.5 MG Ropinirole HCl (Requip Tab) 1 mg HS PO 06/03/17 21:00 07/03/17 20:59 06/03/17 21:05 1 MG Magnesium Oxide (Mag-Ox Tab) 400 mg QAM PO 06/04/17 09:00 07/04/17 08:59 Heparin Sodium (Porcine) (Heparin Sq 5000 Unit/0.5ml) 5,000 unit Q8 SQ 06/03/17 22:00 07/03/17 21:59 06/03/17 22:17 5,000 UNIT Sodium Bicarbonate 75 meq/Sodium Chloride 1,075 ml @ 150 mls/hr Q7H10M IV 06/03/17 23:30 07/03/17 23:29 Miscellaneous Information (Pharmacy Consult) 1 ea NOW STAT N/A 06/03/17 23:27 06/03/17 23:28 UNV Hydrocortisone Sodium Succinate 50 mg/Syringe 1 ml @ 4 mls/min Q8H IV 06/04/17 04:00 07/04/17 03:59 Vancomycin HCl 1250 mg/Sodium Chloride 275 ml @ 125 mls/hr TODAY@0030 IV 06/04/17 00:30 06/04/17 02:41 Miscellaneous Information (Icu Protocol For Hyperglycemia) 1 ea PRN PRN N/A 06/04/17 00:45 06/06/17 00:44 UNV Review of Systems A complete 10-point Review of Systems was discussed with the patient, with pertinent positives and negatives listed in the History of Present Illness. All remaining Review of Systems questions can be considered negative unless otherwise specified. Physical Exam Date Time Temp Pulse Resp B/P (MAP) Pulse Ox O2 Delivery O2 Flow Rate FiO2 06/04/17 00:13 36.6 87 18 98 06/04/17 00:00 99 Room Air 06/03/17 20:00 36.3 83 18 89/58 (68) 99 Room Air 06/03/17 20:00 99 Room Air 06/03/17 18:47 85 82/46 98 06/03/17 18:05 85 87/51 99 Room Air 06/03/17 17:33 Room Air 06/03/17 16:45 85 81/52 06/03/17 15:51 92 80/48 06/03/17 15:33 90 88/50 06/03/17 15:27 89 87/48 06/03/17 15:19 90 06/03/17 15:01 36.3 99 18 73/53 99 Room Air VITAL SIGNS - Vital signs and nursing notes were reviewed. GENERAL - 61-year-old female appearing her stated age who is in no acute distress. Communicates well with provider and answers questions appropriately. SKIN - Without rashes. Dry appearing. No excoriations or lesions noted. HEAD - NC/AT. EYES - PERRL with EOMI bilaterally. Sclera anicteric. Palpebral conjunctiva pink and moist with no injection noted. EARS - No deformities of external structures noted on gross examination bilaterally. NOSE - Midline and without cyanosis. No epistaxis or purulent drainage noted. MOUTH/OROPHARYNX - Without perioral cyanosis. Buccal mucosa pink and dry and without leukoplakia. Tongue midline with equal elevation of palate bilaterally. No tonsillar hypertrophy, erythema, or exudates noted. NECK - Neck with FROM. Supple to palpation. No bruit noted to auscultation bilaterally. LUNGS - Chest wall symmetric without accessory muscle use, intercostals retractions, or central cyanosis. Normal vesicular breath sounds CTA B/L. No wheezes, rales, or rhonchi appreciated. CARDIAC - RRR with S1/S2. No murmur, rubs, or gallops appreciated. ABDOMEN - Abdominal contour flat without pulsations or visible masses. BS normoactive all four quadrants. Well healed midline incision. No tenderness, palpable masses, hepatosplenomegaly, or ascites noted. EXTREMITIES - No clubbing or peripheral cyanosis. No pretibial edema present. TTP to the calves bilaterally. +3/5 radial and dorsalis pedis pulses palpated throughout. +5/5 strength noted in UE/LE bilaterally. NEUROLOGIC - Cranial nerves II through XII grossly intact. Sensory intact to light touch throughout. Patellar reflexes +2/4. PSYCH - A&Ox3 and cooperates fully with examiner. Pt is very pleasant and interacts well with examiner. Laboratory Results Last 24 Hours Test 06/03/17 15:19 06/03/17 17:20 06/03/17 20:19 06/03/17 21:31 White Blood Count 9.92 K/uL Red Blood Count 3.76 M/uL Hemoglobin 12.2 g/dL Hematocrit 36.4 % Mean Corpuscular Volume 96.8 fL Mean Corpuscular Hemoglobin 32.4 pg Mean Corpuscular Hemoglobin Concent 33.5 g/dl Platelet Count 380 K/uL Mean Platelet Volume 9.6 fL Neutrophils (%) (Auto) 64.7 % Lymphocytes (%) (Auto) 22.5 % Monocytes (%) (Auto) 2.9 % Eosinophils (%) (Auto) 8.9 % Basophils (%) (Auto) 0.2 % Neutrophils # (Auto) 6.42 K/uL Lymphocytes # (Auto) 2.23 K/uL Monocytes # (Auto) 0.29 K/uL Eosinophils # (Auto) 0.88 K/uL Basophils # (Auto) 0.02 K/uL RDW Standard Deviation 50.2 fL RDW Coefficient of Variation 14.1 % Immature Granulocyte % (Auto) 0.8 % Immature Granulocyte # (Auto) 0.08 K/uL Echinocytes 1+ Prothrombin Time 9.9 SECONDS Prothromb Time International Ratio 0.9 Activated Partial Thromboplast Time 50.2 SECONDS Partial Thromboplastin Ratio 1.9 Sodium Level 138 mmol/L Potassium Level 5.0 mmol/L Chloride Level 115 mmol/L Carbon Dioxide Level 15 mmol/L Anion Gap 9.0 mmol/L Blood Urea Nitrogen 60 mg/dl Creatinine 2.94 mg/dl Est Creatinine Clear Calc Drug Dose 15.7 ml/min Estimated GFR () 19.1 Estimated GFR (Non- 16.5 BUN/Creatinine Ratio 20.3 Random Glucose 128 mg/dl Calcium Level 8.9 mg/dl Magnesium Level 2.2 mg/dl Total Bilirubin 0.2 mg/dl Direct Bilirubin < 0.1 mg/dl Aspartate Amino Transf (AST/SGOT) 30 U/L Alanine Aminotransferase (ALT/SGPT) 32 U/L Alkaline Phosphatase 141 U/L Total Creatine Kinase 40 U/L Creatine Kinase MB 0.9 ng/ml Creatine Kinase MB Ratio 2.3 Troponin I < 0.015 ng/ml Total Protein 7.8 gm/dl Albumin 3.3 gm/dl Lipase 378 U/L Thyroid Stimulating Hormone (TSH) 11.200 uIu/ml Free Thyroxine 0.65 ng/dl Random Cortisol 18.15 mcg/dl Digoxin Level 1.6 ng/ml Hepatitis C Antibody Screen NEG Urine Color YELLOW Urine Appearance CLEAR Urine pH 5.0 Urine Specific [place] 1.013 Urine Protein NEG Urine Glucose (UA) 2+ Urine Ketones NEG Urine Occult Blood NEG Urine Nitrite NEG Urine Bilirubin NEG Urine Urobilinogen NEG Urine Leukocyte Esterase SMALL Urine WBC (Auto) 5-10 /hpf Urine RBC (Auto) 0-4 /hpf Urine Hyaline Casts (Auto) 1-5 /lpf Urine Epithelial Cells (Auto) 20-30 /lpf Urine Bacteria (Auto) NEG Venous Blood pH 7.18 Venous Blood Partial Pressure CO2 39 mmHg Venous Blood Partial Pressure O2 27 mmHg Venous Blood HCO3 14 mmol/L Venous Blood Oxygen Saturation < 60.0 % Venous Blood Base Excess -13.3 mEq/L Bedside Glucose 80 mg/dl Test 06/03/17 23:27 06/04/17 00:20 06/04/17 00:31 Creatine Kinase MB Ratio Diagnostic Results Radiological imaging and reports were reviewed by myself. Radiologist's Interpretation as follows: CHEST ONE VIEW PORTABLE CLINICAL HISTORY: R mental status. Weakness. COMPARISON STUDY: March 09, 2015 FINDINGS: The cardiac and mediastinal contours are normal. There is no evidence of focal pulmonary consolidation. There is no evidence of failure. No pleural effusions are visualized.[ There is suspected left shoulder calcific tendinitis. IMPRESSION: No active disease in the chest. Assessment & Plan (1) Elevated TSH (2) Transient confusion (3) Metabolic acidosis (4) Dehydration (5) Acute renal failure (6) Hypotension (7) NICM (nonischemic cardiomyopathy) (8) Tobacco abuse (9) COPD (chronic obstructive pulmonary disease) (10) DMII (diabetes mellitus, type 2) (11) CAD (coronary artery disease) (12) Crohn disease Reason Critically Ill: 61-year-old female with hypotension and acute kidney injury requiring increasing IV fluid boluses as well as corticosteroid administration for suspected adrenal insufficiency. Neuro - * CAM ICU: NEGATIVE * Restless Leg Syndrome: * Currently takes Requip. On review of common side effects, orthostatic hypotension is among the most common. May consider holding this mediation with the acute change in CrCl. * Transient Confusion: * No recent episodes with no neurological findings on exam today. * With h/o mild CAD and h/o smoking, will US carotids bilaterally for any significant stenosis. ??Stenosis w/ recent episodes of hypotension resulting in decreased profusion and transient confusion. * Without focal neurological findings on exam and without recent s/s, do not see the utility in emergent CT. May suggest MRI for further evaluation of ??TIA symptoms. Currently taking baby aspirin daily. Cardiac - * Hypotension: * Likely secondary to dehydration. * Has improved w/ boluses and continued IVF. * Will monitor closely for need for vasoactive medication support. * Consider liberal fluid boluses in the setting of hypotension and dehydration. * Received initial dose of Solu-Cortef 100 mg for concerns of adrenal insufficiency. * Serum Random Cortisol >18 - does not suggest this as primary diagnosis. * Agree with continued fluid resuscitation w/ caution in the patient with known h/o NICM. * Agree with repeat AM Echo for evaluation of cardiac function. * Non-Ischemic Cardiomyopathy (last EF 30%): * Repeat Echo as above. * Hold Lasix 2/2 ARF and volume depletion. * EKG: NSR 88bpm w/o ST/T-wave abnormality per my interpretation; QTc 401 ms. * Monitor on telemetry for any dysrhythmias in the setting of recent episode of transient confusion. Respiratory - * COPD: * Continue home treatments PRN. * CXR - unremarkable. * Initial AB.///12 - suggestive of metabolic acidosis. * Monitor continued pulse-oximetry. NC O2 PRN. GI - * h/o Crohn's Dz/Pancreatitis: * Initial dose of Stratera reported on Saturday. * Chronic Diarrhea 2/2 above: * C. Diff Negative. * Likely contributing to patient's volume depletion/dehydration status. RENAL/LYTES - * Acute Renal Failure: * Likely multifactorial. * Poor free water intake at baseline (prefers Pepsi as primary source of hydration). Worsening PO intake 2/2 current family events. * Continues with nephrotoxic agents (Metformin, Lasix, etc.) despite volume depletion. Presumed to worsen her ARF. * Improving w/ fluid resuscitation. * Avoid Nephrotoxic Agents. * Metabolic Acidosis: * Also likely multifactorial. * ??Metformin as primary source of metabolic acidosis in the setting of acute kidney injury. * Lasix likely continues to worsen kidney function as she has poor PO intake and multiple bouts of diarrhea daily. * Agree with BiCarb gtt at this point as ABG suggestive of Metabolic Acidosis. * Also contributing Hyperchloremia which will only add to her state of acidosis. Consider Normosol/LR once BiCarb improves. * Appreciate Nephrology Consultation. - * No [place] at this time. * Continue with strict I&Os as she is hydrated. ENDO - * DMII: * Hold on Metformin 2/2 ARF/Metabolic Acidosis. * ISS/gtt per protocols. * Suggest L[employer] Sl[employer] as the patient has poor perception of her disease process (i.e. continues to drink regular Pepsis in large quantities despite her diagnosis and admittedly poor control of BSGs). * Elevated TSH: * Free T4 low. * Suggestive of Hypothyroid state. * Possible Adrenal Insufficiency: * Per symptoms of Fatigue, Anorexia, GI, Wt loss, and hypotension. * ??any contribution to recent biologic agent for Crohn's. * Random cortisol 18.15 mcg/dL - not suggestive of AI state. * Initially treated w/ 100 mg Solu-Cortef IV. Agree with stress dosing w/ current hypotension patient. * h/o COPD - previously on inhaled corticosteroids until one month ago. With limited systemic absorption, do not feel this is a major contributor. HEME - * Stable H&H. * Will monitor closely for any dilutional changes as she is rehydrated. ID - * No c/o of infection at this point per history or laboratory assessment. * Received Vanc/Cefepime dosing. * Blood cultures obtained for ??source of hypotension. * Lactic Acid/ProCal Negative. * Consider discontinuation of antibiotics as clinical picture less likely related to infection. LINES/IV ACCESS - * PIVs intact. DVT PROPHYLAXIS - * Heparin SQ. * Will add bilateral lower extremity Dopplers 2/2 c/o bilateral calf pain. I have personally spent 45 minutes of critical care time in the direct management of this patient. This is a life/limb threatening event. This includes time spent evaluating patient, direct bedside care, chart review, placing orders, interpretation of diagnostic studies, discussion with consultants, patient, and family members, as well as other required patient management activities. This time is exclusive of all separately billable procedures, and teaching time and separate from and in addition to any other critical care service time. Thank you for this consultation allow us to be part of this patient's care. Please refer to my attending physician's documentation for any further recommendations. Attending addendum, The patient was seen, examined independently, case reviewed on rounds with the staff, agree with assessment and plan of my colleagues at [facility]. The patient was admitted to the hospital with generalized weakness, borderline blood pressure, and had a history of cardiomyopathy with EF of 20%, the patient was found to have acute kidney insufficiency as well. Patient's urine output was suboptimal, the patient was maintained on Lasix at home and it was felt that the patient is dehydrated. The patient was noted to have metabolic acidosis, I do believe that the changes in her BUN/creatinine are chronic rather than acute. The patient does not have significant hyponatremia, hyperkalemia, fever, and the above findings does not support the diagnosis of adrenal insufficiency. No evidence of infectious process at this point as well. Repeat echocardiogram showed normal ejection fraction with no evidence of cardiomyopathy. When I interviewed the patient, she denies any symptoms and review of systems 10 systems was negative. The patient physical exam revealed elderly female does not appear to be in any distress, her vital signs are stable, blood pressure was registered at 100/67. S1-S2 regular rate and rhythm clear lung le, abdomen is benign no edema. On her labs and imaging has been reviewed personally. Impression: 1. Non-anion gap metabolic acidosis with hyperchloremia likely dilutional. Although she does have a chronic component of chronic kidney disease. 2. Chronic kidney disease with inability to regenerate her bicarb. 3. No strong evidence on repeat echo of cardiomyopathy with ejection fraction currently is 60%. No wall motion abnormality of pulmonary hypertension. 4. No evidence of sepsis. 5. Hypothyroidism. 6. No evidence of adrenal insufficiency. Plan: 1. Stop all antibiotics. 2. Stop hydrocortisone. 3. Continue with IV bicarb as the patient is in renal insufficiency and likely chronically unable to correct her acid-base balance. 4. Start oral sodium bicarb. 5. Appreciate Dr. Soriano and Dr. Troncoso input. 6. Encourage oral intake and ambulate the patient. 7. Transfer the patient to regular floor. Thank you for letting me participate in the care of this patient. CCT was 45 minutes.
[2017-06-04] MEDS ORDERED: ICU PROTOCOL FOR HYPERGLYCEMIA PRN (00:45)
[2017-06-04] MEDS ORDERED: CEFEPIME CONSULT ACTIVE PRN (00:52)
[2017-06-04] MEDS ORDERED: VANCOMYCIN CONSULT ACTIVE PRN (01:00)
[2017-06-04 01:01] LABS: BLOOD UREA NITROGEN 53 mg/dl (7-18); CALCIUM 7.7 mg/dl (8.5-10.1); CARBON DIOXIDE 13 mmol/L (21-32); CREATININE 2.34 mg/dl (0.60-1.20); GLUCOSE 145 mg/dl (70-99); SODIUM 141 mmol/L (136-145)
[2017-06-04 01:03] LABS: CKMB 1.4 ng/ml (0.5-3.6); PHOSPHORUS 5.2 mg/dl (2.5-4.9)
[2017-06-04] MEDS: SODIUM BICARBONATE 8.4% INJ 75 MEQ in SODIUM CHLORIDE 0.45% 1000ML 1,000 ML IV SCH ×3 (01:55→20:53)
[2017-06-04] MEDS ORDERED: CEFEPIME IV 2000 MG in DEXTROSE 5% 100ML IV SCH (02:00)
[2017-06-04] MEDS ORDERED: CEFEPIME IV 2,000 MG in SYRINGE 7.5 ML IV SCH (02:00)
[2017-06-04] MEDS: HYDROCORTISONE IV 50 MG in SYRINGE 0 ML IV SCH ×3 (04:48→20:55)
[2017-06-04] MEDS: HEPARIN SOD 5000 UNIT/0.5 ML CARP SQ SCH ×2 (05:33→14:38)
[2017-06-04] MEDS ORDERED: LEVOTHYROXINE 50 MCG TAB PO SCH (06:00)
[2017-06-04 06:08] LABS: BASO % 0.2 %; BASO ABS # 0.01 K/uL (0-0.2); EOS % 2.5 %; EOS ABS # 0.14 K/uL (0-0.5); HEMATOCRIT 27.9 % (37-47); HEMOGLOBIN 9.2 g/dL (12.0-16.0); IG# 0.05 K/uL (0.00-0.02); LYMPH % 18.6 %; LYMPH ABS # 1.03 K/uL (1.2-3.4); MEAN CELL VOLUME 96.5 fL (80-100); MEAN CORPUSCULAR HEMOGLOBIN 31.8 pg (25-34); MEAN PLATELET VOLUME 9.1 fL (7.4-10.4); MONO % 3.1 %; MONO ABS # 0.17 K/uL (0.11-0.59); NEUT % 74.7 %; NEUT ABS # 4.14 K/uL (1.4-6.5); PLATELET COUNT 281 K/uL (130-400); RED CELL DISTRIBUTION WIDTH SD 49.5 fL (36.4-46.3); WHITE BLOOD COUNT 5.54 K/uL (4.8-10.8)
[2017-06-04 06:37] LABS: ALBUMIN 2.2 gm/dl (3.4-5.0); ALT/SGPT 21 U/L (12-78); AST/SGOT 21 U/L (15-37); BLOOD UREA NITROGEN 50 mg/dl (7-18); CALCIUM 7.5 mg/dl (8.5-10.1); CARBON DIOXIDE 13 mmol/L (21-32); CREATININE 2.09 mg/dl (0.60-1.20); GLUCOSE 153 mg/dl (70-99); POTASSIUM 5.2 mmol/L (3.5-5.1); SODIUM 140 mmol/L (136-145)
[2017-06-04 06:41] LABS: HEMOGLOBIN A1C 6.9 % (4.5-5.6)
[2017-06-04 06:45] LABS: ALKALINE PHOSPHATASE 95 U/L (45-117); PHOSPHORUS 4.2 mg/dl (2.5-4.9); TOTAL PROTEIN 5.5 gm/dl (6.4-8.2)
--- NOTE | 2017-06-04 06:47 | DIAGNOSTIC IMAGING REPORT ---
CAROTID DOPPLER NECK ART HISTORY: Mental status change transient confusion COMPARISON: None. TECHNIQUE: Real-time, grayscale, and color Doppler sonography of the carotid arteries was performed. Imaging reviewed in the transverse and longitudinal planes. All measurements were calculated based on NASCET criteria. FINDINGS: Antegrade flow is seen in the bilateral vertebral arteries. The brachial pressures are hemodynamically similar. Moderate plaque formation bilaterally The peak systolic velocity within the right ICA is 108. The right systolic ratio is 1.2. The peak systolic velocity within the left ICA is 123. The left systolic ratio is 1.4. IMPRESSION: Mild plaque formation bilaterally. No significant stenotic process. The above report was generated using voice recognition software. It may contain grammatical, syntax or spelling errors. Electronically signed by: Jose Singh M.D. 06/04/2017 6:45 AM Dictated Date/Time: 06/04/2017 6:44 AM
--- NOTE | 2017-06-04 06:51 | DIAGNOSTIC IMAGING REPORT ---
VENOUS DOPPLER LWR EXT BILA CLINICAL HISTORY: 61 years-old Female presenting with calf pain. TECHNIQUE: Real-time grayscale and color and spectral Doppler ultrasound imaging of the veins of the bilateral lower extremities was performed. Compression and augmentation were also utilized. COMPARISON: None. FINDINGS: Right: Common femoral vein: Patent. Greater saphenous vein: Patent. Deep femoral vein: Patent. Femoral vein: Patent. Popliteal vein: Patent. Calf veins: Patent. Left: Common femoral vein: Patent. Greater saphenous vein: Patent. Deep femoral vein: Patent. Femoral vein: Patent. Popliteal vein: Patent. Calf veins: Patent. Other: None. IMPRESSION: No evidence of deep venous thrombosis. Electronically signed by: Jean-Paul Valdez M.D. 06/04/2017 6:50 AM Dictated Date/Time: 06/04/2017 6:49 AM
[2017-06-04] MEDS ORDERED: NURSING VERBAL MED ORDER ONE ×2 (07:45→21:15)
[2017-06-04] MEDS: ROPINIROLE HCL 0.25 MG TAB PO SCH (08:03)
[2017-06-04] MEDS: INSULIN ASPART 100 UNITS/ML 3 ML PEN SC SCH ×4 (08:04→20:55)
[2017-06-04] MEDS: FLUTICASONE PROP HFA INH 44 MCG INHALER INH SCH ×2 (08:04→20:55)
[2017-06-04] MEDS: CHOLECALCIFEROL 1000 INTER.UNIT TAB PO SCH (08:05)
[2017-06-04] MEDS: CITALOPRAM 20 MG TAB PO SCH (08:05)
[2017-06-04] MEDS: CETIRIZINE HCL 10 MG TAB PO SCH (08:05)
[2017-06-04] MEDS: MAGNESIUM OXIDE 400 MG TAB PO SCH (08:05)
[2017-06-04] MEDS: GABAPENTIN 100 MG CAP PO SCH ×3 (08:06→20:57)
[2017-06-04] MEDS: SODIUM BICARBONATE 650 MG TAB PO SCH ×3 (08:56→20:58)
[2017-06-04] MEDS ORDERED: DIGOXIN 0.125 MG TAB PO SCH (09:00)
[2017-06-04] MEDS ORDERED: HYDROCORTISONE 10 MG TAB PO SCH (09:00)
--- NOTE | 2017-06-04 09:11 | ECHOCARDIOGRAM REPORT ---
*NOTICE TO RECEIVING [employer]ENCY This information is strictly Confidential and protected under [place] law. [place] law prohibits you from making any further disclosure of this information unless further disclosure is expressly permitted by the written consent of the person to whom it pertains or is authorized by law. A general authorization for the release of medical or other information is not sufficient for this purpose. Hospital accepts no responsibility if the information is made available to any other person, INCLUDING THE PATIENT. Interpretation Summary * Name: SVETLANA MOMIN Study Date: 06/04/2017 06:50 AM BP: 93/47 mmHg * [facility] HR: 116 * : 1955 (M/d/yyyy) Gender: Female Height: 59 in * Age: 61 yrs Ethnicity: [place] Weight: 130 lb * Ordering Physician: Karen Gregory * Referring Physician: Kellee Merida * Performed By: Violetta Alex RDCS * * Reason For Study: HYPOTENSION * BSA: 1.5 m2 * The study was technically adequate. * -- Conclusions -- * There is normal left ventricular wall thickness. * No regional wall motion abnormalities noted. * Left ventricular systolic function is normal. * The qualitative left ventricular ejection fraction=60%. * Aortic valve sclerosis mild, without significant aortic valvular stenosis. Procedure Details * A complete two-dimensional transthoracic echocardiogram was performed (2D, M-mode, Doppler and color flow Doppler). Left Ventricle * The left ventricle is normal in size. * The global longitudinal strain is -23% (normal). * There is normal left ventricular wall thickness. * Left ventricular systolic function is normal. * The qualitative left ventricular ejection fraction=60%. * The left ventricular wall motion is normal. * No regional wall motion abnormalities noted. Right Ventricle * The right ventricle is normal size. * The right ventricular systolic function is normal as assessed by tricuspid annular plane systolic excursion (TAPSE) (normal >1.5 cm). Atria * The left atrial size is normal. * Right atrial size is normal. * There is no evidence of atrial septal defect, but resolution does not allow assessment for a patent foramen ovale. Mitral Valve * The mitral valve is normal. * There is no mitral valve stenosis. * Significant mitral regurgitation is absent. Tricuspid Valve * The tricuspid valve is normal. * There is no tricuspid stenosis. * Significant tricuspid regurgitation is absent. * Doppler findings do not suggest pulmonary hypertension. Aortic Valve * The aortic valve is trileaflet. * Aortic valve sclerosis mild, without significant aortic valvular stenosis. * Aortic stenosis is absent. * There is no significant aortic regurgitation. Pulmonic Valve * The pulmonary valve is not well seen, but the Doppler examination is normal without significant regurgitation or stenosis. Great Vessels * The aortic root and proximal ascending aorta are normal sized. Pericardium/Pleural * There is no pericardial effusion. Great Vessels * Normal inferior vena cava diameter and respiratory variation suggests normal central venous pressure. * Normal inferior vena cava size and collapsability with sniff indicates a normal right atrial pressure of 3 mmHg Left Ventricular Diastolic Function * Grade I diastolic dysfunction, (abnormal relaxation pattern). MMode 2D Measurements and Calculations IVSd 0.91 cm IVSs 1.4 cm LVIDd 3.9 cm LVIDs 2.7 cm LVPWd 1.0 cm LVPWs 1.6 cm IVS/LVPW 0.89 FS 28.7 % EDV(Teich) 64.0 ml ESV(Teich) 28.1 ml EF(Teich) 56.0 % EDV(cubed) 57.1 ml ESV(cubed) 20.7 ml EF(cubed) 63.8 % % IVS thick 50.8 % % LVPW thick 59.9 % LV mass(C)d 114.8 grams LV mass(C)dI 74.8 grams/m\S\2 LV mass(C)s 142.9 grams LV mass(C)sI 93.1 grams/m\S\2 SV(Teich) 35.8 ml SI(Teich) 23.3 ml/m\S\2 SV(cubed) 36.4 ml SI(cubed) 23.7 ml/m\S\2 Ao root diam 3.0 cm Ao root area 6.9 cm\S\2 LA dimension 3.7 cm LA/Ao 1.2 LVAd ap4 23.4 cm\S\2 LVLd ap4 7.7 cm EDV(MOD-sp4) 57.1 ml EDV(sp4-el) 60.0 ml LVAs ap4 14.1 cm\S\2 LVLs ap4 6.5 cm ESV(MOD-sp4) 26.8 ml ESV(sp4-el) 26.2 ml EF(MOD-sp4) 53.1 % EF(sp4-el) 56.3 % LVAd ap2 26.7 cm\S\2 LVLd ap2 8.2 cm EDV(MOD-sp2) 71.3 ml EDV(sp2-el) 73.8 ml LVAs ap2 15.5 cm\S\2 LVLs ap2 7.1 cm ESV(MOD-sp2) 27.5 ml ESV(sp2-el) 28.8 ml EF(MOD-sp2) 61.4 % EF(sp2-el) 61.0 % LVLd %diff 5.4 % EDV(MOD-bp) 66.3 ml LVLs %diff 8.8 % ESV(MOD-bp) 28.4 ml EF(MOD-bp) 57.1 % SV(MOD-sp4) 30.4 ml SI(MOD-sp4) 19.8 ml/m\S\2 SV(MOD-sp2) 43.8 ml SI(MOD-sp2) 28.5 ml/m\S\2 SV(MOD-bp) 37.8 ml SI(MOD-bp) 24.6 ml/m\S\2 SV(sp4-el) 33.8 ml SI(sp4-el) 22.0 ml/m\S\2 SV(sp2-el) 45.0 ml SI(sp2-el) 29.3 ml/m\S\2 Doppler Measurements and Calculations MV E max mae 87.9 cm/sec MV A max mae 121.3 cm/sec MV E/A 0.72 MV dec time 0.25 sec Ao V2 max 164.7 cm/sec Ao max PG 10.8 mmHg Ao max PG (full) 7.6 mmHg LV V1 max PG 3.3 mmHg LV V1 max 90.6 cm/sec
--- NOTE | 2017-06-04 09:45 | Progress Note ---
Internal Med Progress Note Date of Service: Jun 04, 2017. Provider Documentation: SUBJECTIVE: Patient seen and examined in ICU bed 4 Comfortable Feels fatigue/tiredness has improved No fever or chills, no dizzy spell, no shortness of breath ,no chest heaviness Blood pressure improved systolic to 93 Finished breakfast this morning No complaint of nausea, vomiting, abdominal pain OBJECTIVE: Vital Signs-as noted below Exam: General-pleasant, no apparent distress Eyes-sclera nonicteric ENT-moist oral mucosa Neck-no carotid bruit, no thyromegaly, no JVD Lungs- clear to auscultate no wheeze or rales Heart-regular S1-S2 Abdomen-soft nontender, active bowel sounds Extremities-no calf tenderness ,itching has much improved on lower extremity, no ankle edema Neuro-alert awake oriented 3, no confusion noted, no focal neurological deficit Lab data as noted below. ASSESSMENT & PLAN: HYPOTENSION Presented with weakness fatigue/hypotension with systolic blood pressure in 70s Minimum response with 2 L IV fluid bolus No evidence of sepsis/no recent episode of diarrhea or nausea vomiting Patient was started stress dose of hydrocortisone for concern of possible adrenal insufficiency Overnight stay in ICU blood pressure improved to 93/47 (approximately patient's baseline) repeat blood pressure 101/61 No complain of dizzy spell/or lightheadedness Echo shows normal ejection fraction No new wall motion abnormality Stable to be transferred to telemetry ACUTE RENAL FAILURE -Possible due to poor p.o. intake due to lack of appetite -Patient mentions for last 1 week food did not taste the same -Drinks only soda at home -Able to have urine output -Creatinine improved from 2.94-2.0-with IV hydration -Appreciate input from nephrology -Continue to hold diuretics/avoid NSAIDs/contrast study HYPERKALEMIA/HYPERCHLOREMIA -Possible due to above -Aldactone kept on hold since admission -Ordered for low potassium/renal diet -On IV bicarb drip -Repeat PRP at 1400 METABOLIC ACIDOSIS -Due to acute renal failure? -No evidence of sepsis/normal lactic acid -On bicarb drip -Nephrology flow following/appreciate input LOW MG -Replaced -Repeat PRP at 1400 CONFUSION/METABOLIC ENCEPHALOPATHY -Presented with brief episode of confusion/forgetfulness -Which has resolved completely -Metabolic encephalopathy/metabolic acidosis/electrolytes abnormality -Continue to correct electrolytes/acidosis as per nephrology TYPE 2 DIABETES -Hold metformin -Insulin sliding scale -Hemoglobin A1c 6.9 INCREASED FATIGUE/WEAKNESS/ABNORMAL THYROID FUNCTION TEST -Presents with elevated TSH 11/normal T4 -Acid associated with symptoms of weakness fatigue decreased appetite -On admission case was discussed with Dr. Freeman Endocr[facility] in [facility]-by admitting physician -Patient is started with levothyroxine 100 mcg daily -Given stress dose of IV hydrocortisone -Repeat TSH level in 4-6 weeks HISTORY OF NONISCHEMIC CARDIOMYOPATHY: Repeat transthoracic echo today 06/04/2017 shows: No wall motion abnormality, normal LV function EF of 60% No evidence of volume overload clinically Lasix/Aldactone on hold for PARTH HISTORY OF CROHN'S DISEASE stable, no GI symptoms-no diarrhea or blood in stool/no complaint of abdominal pain. \ -On Stelara/Ustekinumab as outpatient / next dose due June 28. DVT PROPHYLAXIS Subcu heparin DISPOSITION Patient will need PT OT evaluation prior to discharge Social service consulted for discharge planning Medicine follow-up with Dr. Resendiz at [facility] Vital Signs: Date Time Temp Pulse Resp B/P (MAP) Pulse Ox O2 Delivery O2 Flow Rate FiO2 06/04/17 08:00 36.8 91 21 101/61 (74) 98 Room Air 06/04/17 08:00 98 Room Air 06/04/17 06:00 89 15 93/47 (62) 97 Room Air 06/04/17 05:31 90 17 101/48 (65) 99 Room Air 06/04/17 05:01 36.4 90 18 89/40 (56) 97 Room Air 06/04/17 04:30 95 18 113/51 (71) 96 Room Air 06/04/17 04:04 94 17 92/46 (61) 97 Room Air 06/04/17 04:00 95 Room Air 06/04/17 03:01 86 18 85/44 (58) 95 06/04/17 02:30 91 21 101/53 (69) 96 06/04/17 02:15 94 19 97/53 (68) 96 06/04/17 02:00 88 19 101/52 (68) 96 06/04/17 01:30 88 18 93/48 (63) 95 06/04/17 01:16 86 20 91/53 (66) 98 06/04/17 01:01 84 17 101/57 (72) 96 06/04/17 00:46 85 19 89/53 (65) 97 06/04/17 00:23 90 28 96/59 (71) 97 06/04/17 00:13 36.6 87 18 98 06/04/17 00:12 36.7 85 15 88/54 (65) 95 Room Air 06/04/17 00:00 99 Room Air 06/03/17 20:00 36.3 83 18 89/58 (68) 99 Room Air 06/03/17 20:00 99 Room Air 06/03/17 18:47 85 82/46 98 06/03/17 18:05 85 87/51 99 Room Air 06/03/17 17:33 Room Air 06/03/17 16:45 85 81/52 06/03/17 15:51 92 80/48 06/03/17 15:33 90 88/50 06/03/17 15:27 89 87/48 06/03/17 15:19 90 06/03/17 15:01 36.3 99 18 73/53 99 Room Air Lab Results: Results Past 24 Hours Test 06/03/17 15:19 06/03/17 17:20 06/03/17 20:19 06/03/17 21:31 Range/Units White Blood Count 9.92 4.8-10.8 K/uL Red Blood Count 3.76 4.2-5.4 M/uL Hemoglobin 12.2 12.0-16.0 g/dL Hematocrit 36.4 37-47 % Mean Corpuscular Volume 96.8 80-100 fL Mean Corpuscular Hemoglobin 32.4 25-34 pg Mean Corpuscular Hemoglobin Concent 33.5 32-36 g/dl Platelet Count 380 130-400 K/uL Mean Platelet Volume 9.6 7.4-10.4 fL Neutrophils (%) (Auto) 64.7 % Lymphocytes (%) (Auto) 22.5 % Monocytes (%) (Auto) 2.9 % Eosinophils (%) (Auto) 8.9 % Basophils (%) (Auto) 0.2 % Neutrophils # (Auto) 6.42 1.4-6.5 K/uL Lymphocytes # (Auto) 2.23 1.2-3.4 K/uL Monocytes # (Auto) 0.29 0.11-0.59 K/uL Eosinophils # (Auto) 0.88 0-0.5 K/uL Basophils # (Auto) 0.02 0-0.2 K/uL RDW Standard Deviation 50.2 36.4-46.3 fL RDW Coefficient of Variation 14.1 11.5-14.5 % Immature Granulocyte % (Auto) 0.8 % Immature Granulocyte # (Auto) 0.08 0.00-0.02 K/uL Echinocytes 1+ Prothrombin Time 9.9 9.0-12.0 SECONDS Prothromb Time International Ratio 0.9 0.9-1.1 Activated Partial Thromboplast Time 50.2 21.0-31.0 SECONDS Partial Thromboplastin Ratio 1.9 Sodium Level 138 136-145 mmol/L Potassium Level 5.0 3.5-5.1 mmol/L Chloride Level 115 98-107 mmol/L Carbon Dioxide Level 15 21-32 mmol/L Anion Gap 9.0 3-11 mmol/L Blood Urea Nitrogen 60 7-18 mg/dl Creatinine 2.94 0.60-1.20 mg/dl Est Creatinine Clear Calc Drug Dose 15.7 ml/min Estimated GFR () 19.1 Estimated GFR (Non- 16.5 BUN/Creatinine Ratio 20.3 10-20 Random Glucose 128 70-99 mg/dl Calcium Level 8.9 8.5-10.1 mg/dl Magnesium Level 2.2 1.8-2.4 mg/dl Total Bilirubin 0.2 0.2-1 mg/dl Direct Bilirubin < 0.1 0-0.2 mg/dl Aspartate Amino Transf (AST/SGOT) 30 15-37 U/L Alanine Aminotransferase (ALT/SGPT) 32 12-78 U/L Alkaline Phosphatase 141 45-117 U/L Total Creatine Kinase 40 26-192 U/L Creatine Kinase MB 0.9 0.5-3.6 ng/ml Creatine Kinase MB Ratio 2.3 0-3.0 Troponin I < 0.015 0-0.045 ng/ml Total Protein 7.8 6.4-8.2 gm/dl Albumin 3.3 3.4-5.0 gm/dl Lipase 378 73-393 U/L Thyroid Stimulating Hormone (TSH) 11.200 0.300-4.500 uIu/ml Free Thyroxine 0.65 0.80-1.60 ng/dl Random Cortisol 18.15 mcg/dl Digoxin Level 1.6 0.8-2.0 ng/ml Hepatitis C Antibody Screen NEG NEG Urine Color YELLOW Urine Appearance CLEAR CLEAR Urine pH 5.0 4.5-7.5 Urine Specific [place] 1.013 1.000-1.030 Urine Protein NEG NEG Urine Glucose (UA) 2+ NEG Urine Ketones NEG NEG Urine Occult Blood NEG NEG Urine Nitrite NEG NEG Urine Bilirubin NEG NEG Urine Urobilinogen NEG NEG Urine Leukocyte Esterase SMALL NEG Urine WBC (Auto) 5-10 0-5 /hpf Urine RBC (Auto) 0-4 0-4 /hpf Urine Hyaline Casts (Auto) 1-5 0-5 /lpf Urine Epithelial Cells (Auto) 20-30 0-5 /lpf Urine Bacteria (Auto) NEG NEG Venous Blood pH 7.18 7.36-7.41 Venous Blood Partial Pressure CO2 39 38.0-50.0 mmHg Venous Blood Partial Pressure O2 27 mmHg Venous Blood HCO3 14 mmol/L Venous Blood Oxygen Saturation < 60.0 % Venous Blood Base Excess -13.3 mEq/L Bedside Glucose 80 70-90 mg/dl Test 06/04/17 00:20 06/04/17 00:31 06/04/17 00:42 06/04/17 05:56 Range/Units Creatine Kinase MB Ratio 3.5 0-3.0 Sodium Level 141 140 136-145 mmol/L Potassium Level 5.0 5.2 3.5-5.1 mmol/L Chloride Level 120 121 98-107 mmol/L Carbon Dioxide Level 13 13 21-32 mmol/L Anion Gap 8.0 6.0 3-11 mmol/L Blood Urea Nitrogen 53 50 7-18 mg/dl Creatinine 2.34 2.09 0.60-1.20 mg/dl Est Creatinine Clear Calc Drug Dose 19.8 22.5 ml/min Estimated GFR () 25.2 28.9 Estimated GFR (Non- 21.7 24.9 BUN/Creatinine Ratio 22.8 24.2 10-20 Random Glucose 145 153 70-99 mg/dl Osmolality 308 280-300 mOsm/kg Lactic Acid Level 1.0 0.4-2.0 mmol/L Calcium Level 7.7 7.5 8.5-10.1 mg/dl Phosphorus Level 5.2 4.2 2.5-4.9 mg/dl Total Creatine Kinase 40 26-192 U/L Creatine Kinase MB 1.4 0.5-3.6 ng/ml Troponin I < 0.015 0-0.045 ng/ml Procalcitonin 0.14 0-0.5 ng/ml Arterial Blood pH 7.25 7.35-7.45 Arterial Blood Partial Pressure CO2 28 35-46 mmHg Arterial Blood Partial Pressure O2 85 80-95 mm/Hg Arterial Blood HCO3 12 19-24 mmol/L Arterial Blood Oxygen Saturation 94.6 90-95 % Arterial Blood Base Excess -14.1 -9-1.8 mEq/L Arterial Blood Gas Delivery RA [place] Test POS POS White Blood Count 5.54 4.8-10.8 K/uL Red Blood Count 2.89 4.2-5.4 M/uL Hemoglobin 9.2 12.0-16.0 g/dL Hematocrit 27.9 37-47 % Mean Corpuscular Volume 96.5 80-100 fL Mean Corpuscular Hemoglobin 31.8 25-34 pg Mean Corpuscular Hemoglobin Concent 33.0 32-36 g/dl Platelet Count 281 130-400 K/uL Mean Platelet Volume 9.1 7.4-10.4 fL Neutrophils (%) (Auto) 74.7 % Lymphocytes (%) (Auto) 18.6 % Monocytes (%) (Auto) 3.1 % Eosinophils (%) (Auto) 2.5 % Basophils (%) (Auto) 0.2 % Neutrophils # (Auto) 4.14 1.4-6.5 K/uL Lymphocytes # (Auto) 1.03 1.2-3.4 K/uL Monocytes # (Auto) 0.17 0.11-0.59 K/uL Eosinophils # (Auto) 0.14 0-0.5 K/uL Basophils # (Auto) 0.01 0-0.2 K/uL RDW Standard Deviation 49.5 36.4-46.3 fL RDW Coefficient of Variation 14.0 11.5-14.5 % Immature Granulocyte % (Auto) 0.9 % Immature Granulocyte # (Auto) 0.05 0.00-0.02 K/uL Estimated Average Glucose 151 mg/dl Hemoglobin A1c 6.9 4.5-5.6 % Magnesium Level 1.7 1.8-2.4 mg/dl Total Bilirubin 0.3 0.2-1 mg/dl Direct Bilirubin < 0.1 0-0.2 mg/dl Aspartate Amino Transf (AST/SGOT) 21 15-37 U/L Alanine Aminotransferase (ALT/SGPT) 21 12-78 U/L Alkaline Phosphatase 95 45-117 U/L Total Protein 5.5 6.4-8.2 gm/dl Albumin 2.2 3.4-5.0 gm/dl Microbiology Results 06/04/17 Blood Culture, Received Pending 06/04/17 Blood Culture, Received Pending 06/04/17 MRSA DNA Surveillance Screen - Final, Complete Specimen Negative for MRSA by DNA Probe 06/03/17 C.difficile Toxin B Gene (PCR) - Final, Complete No C. difficile toxin B gene detected
[2017-06-04] MEDS ORDERED: MAGNESIUM SULFATE 1GM / D5W 1 GM in PREMIXED IN D5W 100 ML IV STA (09:56)
--- NOTE | 2017-06-04 10:59 | DIAGNOSTIC IMAGING REPORT ---
ABD/PELVIS NO IV OR ORAL CONT CT DOSE: 327.53 mGy.cm HISTORY: Renal insufficiency PARTH /hypotenstion /possible adrenal insufficienency TECHNIQUE: Multiaxial CT images of the abdomen and pelvis were performed without contrast. A dose lowering technique was utilized adhering to the principles of ALARA. COMPARISON STUDY: 02/07/2015 FINDINGS: Focal atelectasis right posterior gastric angle. Lung bases otherwise are clear. Morphology of the liver and spleen are within normal limits. Prior cholecystectomy. Normal adrenal glands. Several small left renal parapelvic cyst. No evidence for an obstructing urinary tract calculus. No evidence for hydronephrosis. Unchanging postoperative changes of the a sending colon. Bowel pattern is nonobstructive throughout. Bladder is midline. No free fluid within the pelvic cul-de-sac. No significant abdominal pelvic or inguinal adenopathy. IMPRESSION: Mild atelectasis right base. Otherwise no acute process of the abdomen or pelvis. Prior cholecystectomy. The above report was generated using voice recognition software. It may contain grammatical, syntax or spelling errors. Electronically signed by: Jose Singh M.D. 06/04/2017 10:57 AM Dictated Date/Time: 06/04/2017 10:53 AM
[2017-06-04 12:06] LABS: HEMATOCRIT 26.7 % (37-47); HEMOGLOBIN 8.7 g/dL (12.0-16.0)
[2017-06-04 12:28] LABS: CALCIUM 7.6 mg/dl (8.5-10.1); CREATININE 1.85 mg/dl (0.60-1.20); POTASSIUM 4.6 mmol/L (3.5-5.1)
--- NOTE | 2017-06-04 16:54 | NEPHROLOGY CONSULTATION ---
DATE OF CONSULTATION: 06/04/2017 ATTENDING OF RECORD: Dr. Soliman. REASON FOR CONSULTATION: PARTH. HISTORY OF PRESENT ILLNESS: This is a 61-year-old female who has underlying diabetes as well as emphysema who actively smokes as well as a history of Crohn's disease with CT findings suggestive of fatty liver disease whose baseline creatinine in March was normal at 0.9. Hemoglobin level is stable at 11.4 in May. The patient presented with confusion and weakness, found to have a creatinine up to 2.94 with a nonanion gap acidosis of 15. Previous bicarbs done in March of this year was 21. There is no proteinuria last checked as an outpatient, last October of last year. The patient was screened for infection. Blood cultures are pending. C. diff is negative. The patient was started on broad spectrum antibiotics. There is also question of hypothyroidism with a TSH of 11.2 and a free T4 of 0.65 and is now on Synthroid 100 mcg daily. For the acidosis, the patient was given a bicarbonate drip and is now on oral sodium bicarbonate tablets. Creatinine is improving since admission from 2.94 down to 1.85, blood pressure was low on admission 73/53. An echo was done of her heart, showed an EF of 60%, mild aortic sclerosis. No regional wall motion abnormalities. Systolic function is normal. CT scan of the abdomen and pelvis was done which showed mild atelectasis at the right base, prior cholecystectomy. Otherwise, no other abnormalities. Chest x-ray was negative. Carotid arteries showed no significant stenosis. Dopplers of the lower extremities were negative. The patient is awake and answering questions appropriately. Main complaint is episodic periods of confusion, fatigue. PAST MEDICAL HISTORY/PAST SURGICAL HISTORY: COPD who actively smokes, type 2 diabetes, Crohn's disease, history of nephrolithiasis, tobacco abuse, cholecystectomy, hysterectomy. FAMILY HISTORY: Significant for diabetes and hypertension. SOCIAL HISTORY: Active smoker, no alcohol, no drugs. and lives at home. HOME MEDICATIONS: Significant for spironolactone 50 mg daily, metformin, lisinopril 2.5, Lasix 20 mg a day. CURRENT MEDICATIONS: Fosamax 70 mg weekly, Synthroid 100 mcg daily, Zyrtec 10 mg daily, vitamin D 2000 units daily, Celexa 20 mg daily, mag 400 mg daily, sodium bicarbonate 1300 t.i.d., hydrocortisone 50 mg IV q. 8, half NS with 75 mEq of bicarbonate at 150 an hour, heparin 5,000 units subQ q. 8, aspirin 162 mg at night, Lipitor 40 mg daily, Neurontin 100 t.i.d. REVIEW OF SYSTEMS: Positive fatigue. Positive shortness of breath with exertion. Positive intermittent bouts of confusion, one episode of vomiting. Positive difficulty sleeping. No itching. Positive coldness, positive 5-pound weight loss, positive decreased appetite, positive itchiness. All other review of systems otherwise negative. PHYSICAL EXAMINATION: VITAL SIGNS: Temperature 36.4, pulse 82, respiratory rate is 20, blood pressure 94/63, satting 97% on room air. GENERAL: Awake, alert, oriented x3. EYES: No scleral icterus. ENT: Moist mucous membranes. NECK: Supple. PULMONARY: Clear to auscultation. CARDIAC: Regular rate and rhythm. ABDOMEN: Bowel sounds positive, soft, nontender. EXTREMITIES: No significant clubbing, cyanosis or edema. NEUROLOGICAL: Nonfocal. DERMATOLOGIC: No rash or ulcers noted. LABORATORY DATA: Sodium was 143, potassium 4.6, chloride is 120, bicarbonate is 13, BUN is 43, creatinine is 1.85, glucose is 130. Lactic acid was normal at 1. Serum osmolality was elevated at 308, calcium 7.6, mag 2.1. SPEP is pending. Albumin is 2.2. Random cortisol was 18. H and H 8.7 and 26.7. White count is 5, platelet count is 281. INR 0.9. Protein to creatinine ratio of 700 mg. UA with pH of 5, specific gravity of 1.013, 2+ glucose, small leukocyte esterase, 5-10 wbc's, 0-4 rbc's. Hep C negative. ASSESSMENT AND PLAN: Acute kidney injury, nonoliguric in the setting of diabetes, on metformin, Crohn's disease, chronic obstructive pulmonary disease with active tobacco use as well as findings of fatty liver disease with normal LFTs, normal platelets, and normal INR who has a low albumin in the 2s, a chronic nongapped metabolic acidosis and a creatinine that is elevated from baseline. Baseline creatinine was 0.9 in March. Unclear what caused this worsening kidney function. Repeat echo shows normal heart function. CT scan of the abdomen showed kidneys were unimpressive. I feel patient was volume depleted; perhaps had poor cardiac function in the past which improved and was on spironolactone and Lasix and perhaps became volume depleted. Screening for infection; however, culture so far negative. diagnosis with a bland urine sediment and proteinuria of under a gram, has volume depletion causing the acidosis, doubt metformin-induced acidosis. I would continue to hydrate with a goal bicarb above 20 and will likely need chronic sodium bicarb tablets initially, but hopefully if kidney function improves back down to baseline, bicarb will eventually improve. Weight was 61 kg. The patient's weight has been down about 20 pounds compared to a year ago and perhaps she has became over diuresed with lower blood pressures contributing to the acidosis, likely a slow volume depleted state where the patient does not need as much diuretics since she has lost weight and heart function has normalized. I appreciate the consultation. JEANINE
[2017-06-04] MEDS: PANTOprazole INJ 40 MG in SYRINGE 0 ML IV SCH (17:30)
[2017-06-04] MEDS: CYCLOBENZAPRINE HCL 5 MG TAB PO PRN (19:24)
[2017-06-04] MEDS: ATORVASTATIN 40 MG TAB PO SCH (20:57)
--- NOTE | 2017-06-05 03:37 | Progress Note ---
Post ICU Progress Note Date & Time Jun 05, 2017 at 03:32 Vital Signs Vital Signs Past 12 Hours Date Time Temp Pulse Resp B/P (MAP) Pulse Ox O2 Delivery O2 Flow Rate FiO2 06/05/17 00:00 Room Air 06/04/17 23:27 36.4 95 20 105/55 (72) 96 Room Air 06/04/17 20:00 Room Air 06/04/17 17:56 36.3 100 20 106/50 (68) 96 Room Air 06/04/17 16:00 Room Air 06/04/17 16:00 36.4 84 21 103/65 (78) 98 Room Air Notes Nausea / Vomiting: adequately controlled Pain: adequately controlled Airway Patency, RR, SpO2: stable & adequate BP & HR: stable & adequate Patient is a 61-year-old female initially admitted to the ICU with hypotension and acute renal failure. In addition, patient had a non-gap metabolic acidosis with a bicarb of 13. She received aggressive fluid resuscitation in the emergency department. She was admitted for close blood pressure monitoring and fluid resuscitation. She had an uneventful stay in the ICU and was eventually downgraded to telemetry status later in the day. She has had improvement of her metabolic acidosis. Her bicarbonate remains low, however is being addressed with intravenous and oral supplementation. On evaluation this morning, the patient is awake, alert, and oriented. She admits that she has felt more energy over the past 24 hours. In addition, she reports that her appetite has seemed to return as she did ask for a snack last evening. Otherwise, the patient offers no complaints and reports that she misses her bed at home. Consider outpatient follow up in 1 to 2 weeks with: PCP, Nephrology Repeat imaging needed: Per primary team. Follow up cultures: N/A Reviewed progress notes, labs, and inpatient medication list Continue current management Additional recommendations: No further recommendations at this time. Thank you for allowing us to participate in the care of this patient. At this time, Critical Care Services will sign off on this case. Please feel free to reconsult as needed. Consults & Procedures Consultants: Nephrology
[2017-06-05 04:07] VITALS: BP 104/68; PULSE 91; TEMP 36.6; O2SAT 93
[2017-06-05] MEDS: SODIUM BICARBONATE 8.4% INJ 75 MEQ in SODIUM CHLORIDE 0.45% 1000ML 1,000 ML IV SCH (04:47)
[2017-06-05] MEDS: LEVOTHYROXINE 100 MCG TAB PO SCH (04:48)
[2017-06-05 06:26] LABS: HEMATOCRIT 26.8 % (37-47); HEMOGLOBIN 8.9 g/dL (12.0-16.0); MEAN CORPUSCULAR HEMOGLOBIN 31.6 pg (25-34); MEAN CORPUSCULAR HGB CONC 33.2 g/dl (32-36); MEAN PLATELET VOLUME 9.1 fL (7.4-10.4); PLATELET COUNT 302 K/uL (130-400); RED CELL DISTRIBUTION WIDTH CV 13.8 % (11.5-14.5); RED CELL DISTRIBUTION WIDTH SD 48.2 fL (36.4-46.3); WHITE BLOOD COUNT 7.19 K/uL (4.8-10.8)
[2017-06-05] MEDS ORDERED: ALENDRONATE SODIUM 70 MG TAB PO SCH (06:30)
[2017-06-05 07:05] LABS: CALCIUM 7.5 mg/dl (8.5-10.1); CREATININE 1.56 mg/dl (0.60-1.20); POTASSIUM 3.6 mmol/L (3.5-5.1)
[2017-06-05 07:08] VITALS: BP 120/63; PULSE 105; TEMP 36.4; O2SAT 98
--- NOTE | 2017-06-05 08:16 | Gastrointestinal Consultation ---
Gastrointestinal Consultation Date of Consultation: Jun 05, 2017 Attending Physician: Jourdan Consulting Physician: Siri Reason for Consultation: anemia History of Present Illness Patient is a 61 year old female w/ ileocolonic crohn's recently started on Stellera who was admitted to [facility] for change in vision, lightheadedness, dizziness. GI was asked to evaluate the pt for anemia. Pt was seen and evaluated , chart reviewed. Family at bedside. Pt notes she feels well form a GI standpoint. Had stelara infusion. Bowels alternate. Can have 1-2 semi-formed stools daily or 5 loose stools daily. No black or bloody stools. Endorses brown stools. No nausea, vomiting. Today, no longer having change in vision, lightheadedness, diazines. No fever, chills, CP, SOB VSS, On arrival HGB 12.2 w/ drop to 8.9. Stools were heme negative. IBD medication hx: budesonide, 6MP, Remicade, humira, Entyvio Crohn's disease behavior: Inflammatory and Fibrostenotic IBD surgical hx: Ileocolonic resection 03/29/14 Colonoscopy 03/05/17: Preparation of the colon was fair. Anal stenosis. Hemorrhoid. (Upper scope used). One 5 mm polyp in the rectum, removed using injection-lift and a hot snare. Resected and retrieved. Two 4 to 5 mm polyps in the rectum, removed with a cold snare. Resected and retrieved. Active ileitis. Unremarkable anastamosis. Path: moderate active ileitis. Random colon bx w/o active inflammmation EGD: none Past Medical/Surgical History Medical Problems: (1) Acute renal failure Status: Acute (2) CAD (coronary artery disease) Status: Chronic (3) COPD (chronic obstructive pulmonary disease) Status: Chronic (4) Crohn disease Status: Acute (5) Dehydration Status: Acute (6) DMII (diabetes mellitus, type 2) Status: Chronic (7) Elevated TSH Status: Acute (8) History of Crohn's disease Status: Acute (9) Hypotension Status: Acute (10) Metabolic acidosis Status: Acute (11) NICM (nonischemic cardiomyopathy) Status: Chronic (12) Renal calculus, left Status: Acute (13) Tobacco abuse Status: Chronic Family History Cancer Diabetes mellitus Gallbladder disease Heart disease Hypertension Social History Smoking Status: Current Every Day Smoker (1 pack per day) Alcohol Use: other Drug Use: none Marital Status: Housing Status: lives with family Occupation Status: retired Allergies Coded Allergies: Mercaptopurine (Verified Allergy, Intermediate, INFLAMED PANCREAS, 06/03/17 ) INFLAMED PANCREAS Nickel (Verified Allergy, Intermediate, breakout, 06/03/17) Erythromycin (Verified Allergy, Unknown, RASH, 06/03/17) Penicillins (Verified Allergy, Unknown, RASH, 06/03/17) Current Medications Home Meds and Scripts Medications Dose Route/Sig Max Daily Dose Days Date Category Dose Instructions Magnesium Oxide (Magnesium Oxide (Mg Supplement) 400 Mg Tab 400 Mg PO DAILY 06/03/17 Reported Glucotrol (Glipizide) 10 Mg Tab 5 Mg PO QDD 06/03/17 Reported Flovent Hfa (Fluticasone Propionate) 120 Puffs/5280 Mcg Aero 2 Puffs INH BID 30 06/03/17 Reported Jardiance (Empagliflozin) 25 Mg Tab 25 Mg PO DAILY 06/03/17 Reported Fosamax (Alendronate Sodium) 70 Mg Tab 70 Mg PO WK 06/03/17 Reported Take every sat Proventil 0.083% 2.5MG/3ML (Albuterol Sulf) 2.5 Mg/3 Ml Nebu 2.5 Mg INH QID PRN 06/03/17 Reported Metformin HCl ER (Metformin HCl) 500 Mg Tabcr 1,000 Mg PO QPM 06/03/17 Reported Metformin HCl ER (Metformin HCl) 500 Mg Tabcr 500 Mg PO QAM 06/03/17 Reported Toprol Xl (Metoprolol Succinate) 25 Mg Tabcr 25 Mg PO BID 06/03/17 Reported Stelara (Ustekinumab) 45 Mg/0.5 Ml Inj 90 Mg SQ EVERY 8 WEEKS 06/03/17 Reported next injection due 06/28/17 Neurontin (Gabapentin) 100 Mg Cap 100 Mg PO TID 02/27/17 Reported Vitamin B12 (Cyanocobalamin) 1,000 Mcg Tab 1 Tab PO QPM 02/27/17 Reported Aspirin Chewable (Aspirin) 81 Mg Chew 162 Mg PO HS 02/27/17 Reported Ventolin Hfa (Albuterol) 200 Puffs/91970 Mcg Aers 2-4 Puffs INH Q6H PRN 02/27/17 Reported Flonase Allergy Relief (Fluticasone Propionate (Nasal)) 50 Mcg/Act Spr 1 Black RUBEN DAILY PRN 02/27/17 Reported Zyrtec (Cetirizine Hcl) 10 Mg Tab 10 Mg PO QAM 02/27/17 Reported Vitamin D3 (Cholecalciferol) 1,000 Unit Tab 2,000 Units PO DAILY 02/27/17 Reported Requip (Ropinirole HCl) 1 Mg Tab 1 Mg PO HS 02/27/17 Reported Requip (Ropinirole HCl) 0.5 Mg Tab 0.5 Mg PO TID 02/27/17 Reported Glipizide Er (Glipizide) 10 Mg Tab 10 Mg PO QAM 02/27/17 Reported Flexeril (Cyclobenzaprine Hcl) 5 Mg Tab 5 Mg PO BID PRN 02/27/17 Reported PRN Lipitor (Atorvastatin Calcium) 40 Mg Tab 40 Mg PO QPM 02/27/17 Reported Lasix (Furosemide) 20 Mg Tab 20 Mg PO QAM 02/27/17 Reported Klor-Con (Potassium Chloride) 20 Meq Tabcr 30 Meq PO QAM 02/27/17 Reported Aldactone (Spironolactone) 50 Mg Tab 50 Mg PO DAILY AFTERNOON 02/27/17 Reported Citalopram Hydrobromide 20 Mg Tab 20 Mg PO DAILY AFTERNOON 02/27/17 Reported Digoxin 0.125 Mg Tab 125 Mcg PO QAM 02/27/17 Reported Zestril (Lisinopril) 2.5 Mg Tab 2.5 Mg PO QAM 02/27/17 Reported Review of Systems Constitutional: No fever, No chills Respiratory: No cough, No shortness of breath Cardiac: No chest pain Abdomen: No pain, No nausea, No vomiting, No diarrhea, No constipation Skin: No rash Physical Exam Date Time Temp Pulse Resp B/P (MAP) Pulse Ox O2 Delivery O2 Flow Rate FiO2 06/05/17 07:08 36.4 105 16 120/63 (82) 98 Room Air 06/05/17 04:07 36.6 91 16 104/68 (80) 93 Room Air 06/05/17 04:00 Room Air 06/05/17 00:00 Room Air 06/04/17 23:27 36.4 95 20 105/55 (72) 96 Room Air 06/04/17 20:00 Room Air 06/04/17 17:56 36.3 100 20 106/50 (68) 96 Room Air 06/04/17 16:00 Room Air 06/04/17 16:00 36.4 84 21 103/65 (78) 98 Room Air 06/04/17 13:51 82 06/04/17 12:00 Room Air 06/04/17 12:00 36.4 101 20 94/63 (73) 97 Room Air General Appearance: no apparent distress Eyes: PERRL ENT: hearing grossly normal Neck: supple, trachea midline Respiratory/Chest: lungs clear, normal breath sounds, no respiratory distress Cardiovascular: regular rate, rhythm, no JVD, no murmur Abdomen: normal bowel sounds, non tender, soft, no organomegaly Neurologic/Psych: alert, normal mood/affect, oriented x 3 Skin: normal color, no jaundice, warm/dry, no rash Laboratory Results Last 24 Hours Test 06/04/17 10:20 06/04/17 11:10 06/04/17 11:52 06/04/17 11:53 Urine Random Creatinine 65.7 mg/dl Urine Random Total Protein 42.5 mg/dl Urine Protein/Creatinine Ratio 0.7 Bedside Glucose 137 mg/dl Sodium Level 143 mmol/L Potassium Level 4.6 mmol/L Chloride Level 120 mmol/L Carbon Dioxide Level 13 mmol/L Anion Gap 10.0 mmol/L Blood Urea Nitrogen 43 mg/dl Creatinine 1.85 mg/dl Est Creatinine Clear Calc Drug Dose 25.4 ml/min Estimated GFR () 33.5 Estimated GFR (Non- 28.9 BUN/Creatinine Ratio 23.2 Random Glucose 130 mg/dl Calcium Level 7.6 mg/dl Magnesium Level 2.1 mg/dl Hemoglobin 8.7 g/dL Hematocrit 26.7 % Arterial Blood pH 7.36 Arterial Blood Partial Pressure CO2 28 mmHg Arterial Blood Partial Pressure O2 86 mm/Hg Arterial Blood HCO3 15 mmol/L Arterial Blood Oxygen Saturation 95.6 % Arterial Blood Base Excess -9.0 mEq/L Arterial Blood Gas Delivery ROOM AIR [place] Test POS Test 06/04/17 16:25 06/04/17 20:26 06/04/17 20:49 06/04/17 23:50 Bedside Glucose 191 mg/dl 56 mg/dl 81 mg/dl Stool Occult Blood NEGATIVE Test 06/05/17 05:42 06/05/17 07:44 White Blood Count 7.19 K/uL Red Blood Count 2.82 M/uL Hemoglobin 8.9 g/dL Hematocrit 26.8 % Mean Corpuscular Volume 95.0 fL Mean Corpuscular Hemoglobin 31.6 pg Mean Corpuscular Hemoglobin Concent 33.2 g/dl RDW Standard Deviation 48.2 fL RDW Coefficient of Variation 13.8 % Platelet Count 302 K/uL Mean Platelet Volume 9.1 fL Sodium Level 142 mmol/L Potassium Level 3.6 mmol/L Chloride Level 115 mmol/L Carbon Dioxide Level 22 mmol/L Anion Gap 5.0 mmol/L Blood Urea Nitrogen 34 mg/dl Creatinine 1.56 mg/dl Est Creatinine Clear Calc Drug Dose 30.6 ml/min Estimated GFR () 41.1 Estimated GFR (Non- 35.5 BUN/Creatinine Ratio 22.0 Random Glucose 93 mg/dl Calcium Level 7.5 mg/dl Magnesium Level 1.8 mg/dl Bedside Glucose 140 mg/dl Impression Patient is a 61 year old female w/ metabolic acidosis, hypotension and acute renal failure being evaluated for anemia in the setting of Crohn's disease, recently colonoscopy. She has been having brown semi-formed stools which are heme negative. No concern for acute GIB. Perhaps her drop in HCT is dilutional. Differentials discussed. Plan - No role for endoscopic evaluation - Daily H&H - Continue Stelara injection as prescribed Attg add: I interviewed and examined pt, reviewed chart and labs. Pt admit with hypotension, acidemia, ARF that appears to be secondary to dehydration ( diuretics?). Her presentation, does not appear to be related to her IBD. Do not anticipate that Stelara needs to be interrupted at this point.
[2017-06-05] MEDS: CITALOPRAM 20 MG TAB PO SCH (08:21)
[2017-06-05] MEDS: GABAPENTIN 100 MG CAP PO SCH ×3 (08:21→20:57)
[2017-06-05] MEDS: FLUTICASONE PROP HFA INH 44 MCG INHALER INH SCH ×2 (08:21→20:57)
[2017-06-05] MEDS: MAGNESIUM OXIDE 400 MG TAB PO SCH (08:21)
[2017-06-05] MEDS: CHOLECALCIFEROL 1000 INTER.UNIT TAB PO SCH (08:21)
[2017-06-05] MEDS: HYDROCORTISONE IV 50 MG in SYRINGE 0 ML IV SCH (08:21)
[2017-06-05] MEDS: PANTOprazole INJ 40 MG in SYRINGE 0 ML IV SCH ×2 (08:21→20:57)
[2017-06-05] MEDS: CETIRIZINE HCL 10 MG TAB PO SCH (08:21)
--- NOTE | 2017-06-05 08:21 | Nephrology Progress Note ---
Nephrology Progress Note Date of Service: Jun 05, 2017. Subjective 61 yo female admitted with jeff and metabolic acidosis and clinically has improved. feels very good. appetite is great. oob to chair. Objective Date Time Temp Pulse Resp B/P (MAP) Pulse Ox O2 Delivery O2 Flow Rate FiO2 06/05/17 07:08 36.4 105 16 120/63 (82) 98 Room Air 06/05/17 04:07 36.6 91 16 104/68 (80) 93 Room Air 06/05/17 04:00 Room Air 06/05/17 00:00 Room Air 06/04/17 23:27 36.4 95 20 105/55 (72) 96 Room Air 06/04/17 20:00 Room Air 06/04/17 17:56 36.3 100 20 106/50 (68) 96 Room Air 06/04/17 16:00 Room Air 06/04/17 16:00 36.4 84 21 103/65 (78) 98 Room Air 06/04/17 13:51 82 06/04/17 12:00 Room Air 06/04/17 12:00 36.4 101 20 94/63 (73) 97 Room Air Physical Exam: General-aaox3 Eyes-no scleral icterus ENT-mmm Neck-supple Lungs-slight end expiratory wheeze Heart-rrr Abdomen-bs+ s/nt/nd Extremities-+1 edema Neuro-nonfocal Current Inpatient Medications Medications (Trade) Dose Ordered Sig/Sahil Route Start Time Stop Time Status Last Admin Dose Admin Acetaminophen (Tylenol Tab) 650 mg Q4H PRN PO 06/03/17 18:00 07/03/17 17:59 Ondansetron HCl (Zofran Inj) 4 mg Q6H PRN IV 06/03/17 18:00 07/03/17 17:59 Insulin Aspart (novoLOG ASPART) SLIDING SCALE If C... ACHS SC 06/03/17 21:00 07/03/17 20:59 06/04/17 17:28 9 UNITS Glucose (Glucose 40% Gel) 15-30 GRAMS 15 GRAMS... UD PRN PO 06/03/17 18:00 07/03/17 17:59 Glucose (Glucose Chew Tab) 4-8 Tablets 4 Tabl... UD PRN PO 4/16/18 18:00 07/03/17 17:59 Dextrose (Dextrose 50% 50ML Syringe) 25-50ML OF 50% DW IV FOR... UD PRN IV 06/03/17 18:00 07/03/17 17:59 Glucagon (Glucagon Inj) 1 mg UD PRN SQ 06/03/17 18:00 07/03/17 17:59 Albuterol (Ventolin Hfa Inhaler) 2 puffs Q6H PRN INH 06/03/17 19:45 07/03/17 19:44 Albuterol Sulfate (Ventolin 0.083% 2.5MG/3ML Neb) 2.5 mg QID PRN INH 06/03/17 19:45 07/03/17 19:44 Atorvastatin Calcium (Lipitor Tab) 40 mg QPM PO 06/03/17 21:00 07/03/17 20:59 06/04/17 20:57 40 MG Cetirizine HCl (zyrTEC TAB) 10 mg QAM PO 06/04/17 09:00 07/04/17 08:59 06/04/17 08:05 10 MG Cholecalciferol (Vitamin D Tab) 2,000 inter.unit DAILY PO 06/04/17 09:00 07/04/17 08:59 06/04/17 08:05 2,000 INTER.UNIT Citalopram Hydrobromide (celeXA TAB) 20 mg DAILY PO 06/04/17 09:00 07/04/17 08:59 06/04/17 08:05 20 MG Cyclobenzaprine HCl (Flexeril Tab) 5 mg BID PRN PO 06/03/17 19:45 07/03/17 19:44 06/04/17 19:24 5 MG Fluticasone Propionate (Flovent Hfa 44MCG Inhaler) 2 puffs BID INH 06/03/17 21:00 07/03/17 20:59 06/04/17 20:55 2 PUFFS Fluticasone Propionate (Flonase Nasal [place]) 1 sprays DAILY PRN RUBEN 06/03/17 19:45 07/03/17 19:44 Gabapentin (Neurontin Cap) 100 mg TID PO 06/03/17 21:00 07/03/17 20:59 06/04/17 20:57 100 MG Ropinirole HCl (Requip Tab) 0.5 mg TID PO 06/03/17 21:00 07/03/17 20:59 Future Hold 06/04/17 08:03 0.5 MG Ropinirole HCl (Requip Tab) 1 mg HS PO 06/03/17 21:00 07/03/17 20:59 Future Hold 06/03/17 21:05 1 MG Magnesium Oxide (Mag-Ox Tab) 400 mg QAM PO 06/04/17 09:00 07/04/17 08:59 06/04/17 08:05 400 MG Miscellaneous Information (Icu Protocol For Hyperglycemia) 1 ea PRN PRN N/A 06/04/17 00:45 06/06/17 00:44 Levothyroxine Sodium (Synthroid Tab) 100 mcg DAILYBB PO 06/05/17 06:00 07/04/17 06:29 06/05/17 04:48 100 MCG Sodium Bicarbonate (Sodium Bicarbonate Tab) 1,300 mg TID PO 06/04/17 09:00 07/04/17 08:59 06/04/17 20:58 1,300 MG Hydrocortisone Sodium Succinate 50 mg/Syringe 1 ml @ 4 mls/min Q12 IV 06/04/17 21:00 07/04/17 03:59 06/04/17 20:55 4 MLS/MIN Pantoprazole Sodium 40 mg/ Syringe 10 ml @ 5 mls/min DAILY@09,21 IV 06/04/17 17:30 07/04/17 17:29 06/04/17 17:30 5 MLS/MIN Last 24 Hours Test 06/04/17 10:20 06/04/17 11:10 06/04/17 11:52 06/04/17 11:53 Urine Random Creatinine 65.7 mg/dl Urine Random Total Protein 42.5 mg/dl Urine Protein/Creatinine Ratio 0.7 Bedside Glucose 137 mg/dl Sodium Level 143 mmol/L Potassium Level 4.6 mmol/L Chloride Level 120 mmol/L Carbon Dioxide Level 13 mmol/L Anion Gap 10.0 mmol/L Blood Urea Nitrogen 43 mg/dl Creatinine 1.85 mg/dl Est Creatinine Clear Calc Drug Dose 25.4 ml/min Estimated GFR () 33.5 Estimated GFR (Non- 28.9 BUN/Creatinine Ratio 23.2 Random Glucose 130 mg/dl Calcium Level 7.6 mg/dl Magnesium Level 2.1 mg/dl Hemoglobin 8.7 g/dL Hematocrit 26.7 % Arterial Blood pH 7.36 Arterial Blood Partial Pressure CO2 28 mmHg Arterial Blood Partial Pressure O2 86 mm/Hg Arterial Blood HCO3 15 mmol/L Arterial Blood Oxygen Saturation 95.6 % Arterial Blood Base Excess -9.0 mEq/L Arterial Blood Gas Delivery ROOM AIR [place] Test POS Test 06/04/17 16:25 06/04/17 20:26 06/04/17 20:49 06/04/17 23:50 Bedside Glucose 191 mg/dl 56 mg/dl 81 mg/dl Stool Occult Blood NEGATIVE Test 06/05/17 05:42 06/05/17 07:44 White Blood Count 7.19 K/uL Red Blood Count 2.82 M/uL Hemoglobin 8.9 g/dL Hematocrit 26.8 % Mean Corpuscular Volume 95.0 fL Mean Corpuscular Hemoglobin 31.6 pg Mean Corpuscular Hemoglobin Concent 33.2 g/dl RDW Standard Deviation 48.2 fL RDW Coefficient of Variation 13.8 % Platelet Count 302 K/uL Mean Platelet Volume 9.1 fL Sodium Level 142 mmol/L Potassium Level 3.6 mmol/L Chloride Level 115 mmol/L Carbon Dioxide Level 22 mmol/L Anion Gap 5.0 mmol/L Blood Urea Nitrogen 34 mg/dl Creatinine 1.56 mg/dl Est Creatinine Clear Calc Drug Dose 30.6 ml/min Estimated GFR () 41.1 Estimated GFR (Non- 35.5 BUN/Creatinine Ratio 22.0 Random Glucose 93 mg/dl Calcium Level 7.5 mg/dl Magnesium Level 1.8 mg/dl Bedside Glucose 140 mg/dl Assessment & Plan HBU-thm-hynxfhiu-creatinine was normal in march of this year. My personal opinion, heart function has improved, pts weight has improved from over 150 a year ago to under 130 and pt was on diuretics and continuing to lose weight and developed a slow jeff with worsening diarrhea concomitantly causing the jeff and combined metabolic acidosis. has to be slowly developing to develop the metabolic acidosis from renal failure. corrected with bicarb fluids. up about 10 pounds and will stop the iv fluids. also on synthroid for hypothyroidism. Will defer to hospitalist as to whether pt has adrenal insufficiency. on steroids now.
[2017-06-05] MEDS: INSULIN ASPART 100 UNITS/ML 3 ML PEN SC SCH ×4 (08:26→20:58)
[2017-06-05 12:18] VITALS: BP 110/67; PULSE 91; TEMP 36.5; O2SAT 96
[2017-06-05 14:40] VITALS: Ht 149.9 cm; Wt 64.0 kg
[2017-06-05 16:04] VITALS: BP 116/65; PULSE 91; TEMP 36.4; O2SAT 95
--- NOTE | 2017-06-05 17:50 | Progress Note ---
Internal Med Progress Note Date of Service: Jun 05, 2017. Provider Documentation: SUBJECTIVE: walking in hallway , no complain of SOB no fever or chills no dark stool eager to be discharged home -as not able to sleep in the hospital bed OBJECTIVE: Vital Signs-as noted below Exam: General-pleasant, no apparent distress Eyes-sclera nonicteric ENT-moist oral mucosa Neck-no carotid bruit, no thyromegaly, no JVD Lungs- clear to auscultate no wheeze or rales Heart-regular S1-S2 Abdomen-soft nontender, active bowel sounds Extremities-no rash or deformity Neuro-alert awake oriented 3, no confusion noted, no focal neurological deficit Lab data as noted below. ASSESSMENT & PLAN: HYPOTENSION resolved , BP stable Possible secondary to volume depletion/ Had nausea vomiting diarrhea for approximately 48 hours Blood pressure improved Presented with weakness fatigue/hypotension with systolic blood pressure in 70s Minimum response with 2 L IV fluid bolus No evidence of sepsis/no recent episode of diarrhea or nausea vomiting Patient was started stress dose of hydrocortisone for concern of possible adrenal insufficiency Overnight stay in ICU blood pressure improved to 93/47 (approximately patient's baseline) repeat blood pressure 101/61 No complain of dizzy spell/or lightheadedness Echo shows normal ejection fraction No new wall motion abnormality Has normal cortisol level CT abdomen and pelvis-negative study No conclusive evidence of adrenal insufficiency discontinued IV cortisol ACUTE RENAL FAILURE -Improved with IV hydration -Possible due to poor p.o. intake due to lack of appetite -Patient mentions for last 1 week food did not taste the same -Drinks only soda at home -Continue to hold diuretics/avoid NSAIDs/contrast study Cr 1.8-> 1.5 today had normal Cr level on 03/2017 appreciate input from Nephrology Cr may remains elevated for some time clinically no evidence of uremia or vol overload possible discharge home tomorrow will need follow up with Nephrology as out pt HYPERKALEMIA/HYPERCHLOREMIA -Improved -Possible due to above -Aldactone kept on hold since admission -Ordered for low potassium/renal diet METABOLIC ACIDOSIS -possible Due to acute renal failure -No evidence of sepsis/normal lactic acid Hco3 22 -normalized -Nephrology flow following/appreciate input LOW MG -Replaced - CONFUSION/METABOLIC ENCEPHALOPATHY Resolved mental status at baseline Ambulating independently in hallway -Presented with brief episode of confusion/forgetfulness -Which has resolved completely -Metabolic encephalopathy/metabolic acidosis/electrolytes abnormality -Continue to correct electrolytes/acidosis as per nephrology TYPE 2 DIABETES -Hold metformin -Insulin sliding scale -Hemoglobin A1c 6.9 INCREASED FATIGUE/WEAKNESS/ABNORMAL THYROID FUNCTION TEST -Presents with elevated TSH 11/normal T4 -Acid associated with symptoms of weakness fatigue decreased appetite -On admission case was discussed with Dr. Freeman End[facility] in [facility]-by admitting physician -Patient is started with levothyroxine 100 mcg daily -Given stress dose of IV hydrocortisone D/aaron as no evidence of adrenal insufficiency noted -Repeat TSH level in 4-6 weeks HISTORY OF NONISCHEMIC CARDIOMYOPATHY: Repeat transthoracic echo today 06/04/2017 shows: No wall motion abnormality, normal LV function EF of 60% No evidence of volume overload clinically Lasix/Aldactone on hold for PARTH HISTORY OF CROHN'S DISEASE stable, no GI symptoms-no diarrhea or blood in stool/no complaint of abdominal pain. \ -On Stelara/Ustekinumab as outpatient / next dose due June 28. DVT PROPHYLAXIS Subcu heparin DISPOSITION Plan to discharge home tomorrow Patient will need outpatient nephrology follow-up Medicine follow-up with Dr. Resendiz at [facility] (formerly [facility])[3] Vital Signs: Date Time Temp Pulse Resp B/P (MAP) Pulse Ox O2 Delivery O2 Flow Rate FiO2 06/06/17 08:00 Room Air 06/06/17 07:25 36.5 98 20 98/61 (73) 95 06/06/17 04:20 36.6 72 16 97/60 (72) 98 Room Air 06/06/17 04:00 Room Air 06/06/17 00:00 Room Air 06/05/17 22:42 36.4 116 20 104/65 (78) 95 Room Air 06/05/17 20:00 Room Air 06/05/17 19:07 36.7 98 20 105/58 (74) 99 Room Air 06/05/17 16:04 36.4 91 20 116/65 (82) 95 Room Air 06/05/17 16:00 Room Air 06/05/17 12:18 36.5 91 20 110/67 (81) 96 Room Air 06/05/17 12:00 Room Air Lab Results: Results Past 24 Hours Test 06/05/17 11:34 06/05/17 16:34 06/05/17 19:51 06/06/17 05:20 Range/Units Bedside Glucose 117 112 164 70-90 mg/dl White Blood Count 9.42 4.8-10.8 K/uL Red Blood Count 3.10 4.2-5.4 M/uL Hemoglobin 9.6 12.0-16.0 g/dL Hematocrit 29.8 37-47 % Mean Corpuscular Volume 96.1 80-100 fL Mean Corpuscular Hemoglobin 31.0 25-34 pg Mean Corpuscular Hemoglobin Concent 32.2 32-36 g/dl RDW Standard Deviation 49.1 36.4-46.3 fL RDW Coefficient of Variation 14.1 11.5-14.5 % Platelet Count 303 130-400 K/uL Mean Platelet Volume 9.0 7.4-10.4 fL Sodium Level 148 136-145 mmol/L Potassium Level 3.4 3.5-5.1 mmol/L Chloride Level 120 98-107 mmol/L Carbon Dioxide Level 24 21-32 mmol/L Anion Gap 4.0 3-11 mmol/L Blood Urea Nitrogen 27 7-18 mg/dl Creatinine 1.42 0.60-1.20 mg/dl Est Creatinine Clear Calc Drug Dose 33.6 ml/min Estimated GFR () 46.1 Estimated GFR (Non- 39.8 BUN/Creatinine Ratio 18.8 10-20 Random Glucose 72 70-99 mg/dl Calcium Level 7.7 8.5-10.1 mg/dl Magnesium Level 1.6 1.8-2.4 mg/dl
[2017-06-05 19:07] VITALS: BP 105/58; PULSE 98; TEMP 36.7; O2SAT 99
[2017-06-05] MEDS: ATORVASTATIN 40 MG TAB PO SCH (20:57)
[2017-06-05] MEDS: CYCLOBENZAPRINE HCL 5 MG TAB PO PRN (21:53)
[2017-06-05 22:42] VITALS: BP 104/65; PULSE 116; TEMP 36.4; O2SAT 95
[2017-06-06 04:20] VITALS: BP 97/60; PULSE 72; TEMP 36.6; O2SAT 98
[2017-06-06 05:53] LABS: HEMATOCRIT 29.8 % (37-47); HEMOGLOBIN 9.6 g/dL (12.0-16.0); MEAN CELL VOLUME 96.1 fL (80-100); MEAN CORPUSCULAR HGB CONC 32.2 g/dl (32-36); PLATELET COUNT 303 K/uL (130-400); RED CELL DISTRIBUTION WIDTH CV 14.1 % (11.5-14.5); RED CELL DISTRIBUTION WIDTH SD 49.1 fL (36.4-46.3); WHITE BLOOD COUNT 9.42 K/uL (4.8-10.8)
[2017-06-06] MEDS: LEVOTHYROXINE 100 MCG TAB PO SCH (06:06)
[2017-06-06 06:27] LABS: CALCIUM 7.7 mg/dl (8.5-10.1); CREATININE 1.42 mg/dl (0.60-1.20); POTASSIUM 3.4 mmol/L (3.5-5.1)
[2017-06-06 07:25] VITALS: BP 98/61; PULSE 98; TEMP 36.5; O2SAT 95
[2017-06-06] MEDS: FLUTICASONE PROP HFA INH 44 MCG INHALER INH SCH (07:42)
[2017-06-06] MEDS: GABAPENTIN 100 MG CAP PO SCH (07:42)
[2017-06-06] MEDS: CHOLECALCIFEROL 1000 INTER.UNIT TAB PO SCH (07:42)
[2017-06-06] MEDS: PANTOprazole INJ 40 MG in SYRINGE 0 ML IV SCH (07:42)
[2017-06-06] MEDS: CITALOPRAM 20 MG TAB PO SCH (07:42)
[2017-06-06] MEDS: MAGNESIUM OXIDE 400 MG TAB PO SCH (07:42)
[2017-06-06] MEDS: CETIRIZINE HCL 10 MG TAB PO SCH (07:42)
[2017-06-06] MEDS: INSULIN ASPART 100 UNITS/ML 3 ML PEN SC SCH ×2 (08:18→11:54)
--- NOTE | 2017-06-06 09:45 | Gastroenterology Progress Note ---
Progress Note Date of Service: Jun 06, 2017 Subjective Pt evaluation today including: conversation w/ patient, physical exam, chart review, lab review Pt was seen and evaluated, chart reviewed. No acute events noted overnight. Has plan for DC today. Feels well. No abd pain. No black or bloody stools. Bowels at her baseline. 2-4 semi-formed stools daily depending on PO intake. No fever, chills, CP, SOB IBD medication hx: budesonide, 6MP, Remicade, humira, Entyvio Crohn's disease behavior: Inflammatory and Fibrostenotic IBD surgical hx: Ileocolonic resection 03/29/14 Colonoscopy 03/05/17: Preparation of the colon was fair. Anal stenosis. Hemorrhoid. (Upper scope used). One 5 mm polyp in the rectum, removed using injection-lift and a hot snare. Resected and retrieved. Two 4 to 5 mm polyps in the rectum, removed with a cold snare. Resected and retrieved. Active ileitis. Unremarkable anastamosis. Path: moderate active ileitis. Random colon bx w/o active inflammmation EGD: none Review of Systems Constitutional: No fever, No chills, No weight loss, No weakness Respiratory: No cough, No shortness of breath Cardiac: No chest pain, No edema Abdomen: No pain, No nausea, No vomiting, No diarrhea, No constipation, No GI bleeding Medications Current Inpatient Medications Medications (Trade) Dose Ordered Sig/Sahil Route Start Time Stop Time Status Last Admin Dose Admin Acetaminophen (Tylenol Tab) 650 mg Q4H PRN PO 06/03/17 18:00 07/03/17 17:59 Ondansetron HCl (Zofran Inj) 4 mg Q6H PRN IV 06/03/17 18:00 07/03/17 17:59 Insulin Aspart (novoLOG ASPART) SLIDING SCALE If C... ACHS SC 06/03/17 21:00 07/03/17 20:59 06/06/17 08:18 1 UNITS Glucose (Glucose 40% Gel) 15-30 GRAMS 15 GRAMS... UD PRN PO 06/03/17 18:00 07/03/17 17:59 Glucose (Glucose Chew Tab) 4-8 Tablets 4 Tabl... UD PRN PO 06/03/17 18:00 07/03/17 17:59 Dextrose (Dextrose 50% 50ML Syringe) 25-50ML OF 50% DW IV FOR... UD PRN IV 06/03/17 18:00 07/03/17 17:59 Glucagon (Glucagon Inj) 1 mg UD PRN SQ 06/03/17 18:00 07/03/17 17:59 Albuterol (Ventolin Hfa Inhaler) 2 puffs Q6H PRN INH 06/03/17 19:45 07/03/17 19:44 Albuterol Sulfate (Ventolin 0.083% 2.5MG/3ML Neb) 2.5 mg QID PRN INH 06/03/17 19:45 07/03/17 19:44 Atorvastatin Calcium (Lipitor Tab) 40 mg QPM PO 06/03/17 21:00 07/03/17 20:59 06/05/17 20:57 40 MG Cetirizine HCl (zyrTEC TAB) 10 mg QAM PO 06/04/17 09:00 07/04/17 08:59 06/06/17 07:42 10 MG Cholecalciferol (Vitamin D Tab) 2,000 inter.unit DAILY PO 06/04/17 09:00 07/04/17 08:59 06/06/17 07:42 2,000 INTER.UNIT Citalopram Hydrobromide (celeXA TAB) 20 mg DAILY PO 06/04/17 09:00 07/04/17 08:59 06/06/17 07:42 20 MG Cyclobenzaprine HCl (Flexeril Tab) 5 mg BID PRN PO 06/03/17 19:45 07/03/17 19:44 06/05/17 21:53 5 MG Fluticasone Propionate (Flovent Hfa 44MCG Inhaler) 2 puffs BID INH 06/03/17 21:00 07/03/17 20:59 06/06/17 07:42 2 PUFFS Fluticasone Propionate (Flonase Nasal [place]) 1 sprays DAILY PRN RUBEN 06/03/17 19:45 07/03/17 19:44 Gabapentin (Neurontin Cap) 100 mg TID PO 06/03/17 21:00 07/03/17 20:59 06/06/17 07:42 100 MG Ropinirole HCl (Requip Tab) 0.5 mg TID PO 06/03/17 21:00 07/03/17 20:59 Future Hold 06/04/17 08:03 0.5 MG Ropinirole HCl (Requip Tab) 1 mg HS PO 06/03/17 21:00 07/03/17 20:59 Future Hold 06/03/17 21:05 1 MG Magnesium Oxide (Mag-Ox Tab) 400 mg QAM PO 06/04/17 09:00 07/04/17 08:59 06/06/17 07:42 400 MG Levothyroxine Sodium (Synthroid Tab) 100 mcg DAILYBB PO 06/05/17 06:00 07/04/17 06:29 06/06/17 06:06 100 MCG Pantoprazole Sodium 40 mg/ Syringe 10 ml @ 5 mls/min DAILY@ IV 06/04/17 17:30 07/04/17 17:29 06/06/17 07:42 5 MLS/MIN Objective Vital Signs Date Time Temp Pulse Resp B/P (MAP) Pulse Ox O2 Delivery O2 Flow Rate FiO2 06/06/17 08:00 Room Air 06/06/17 07:25 36.5 98 20 98/61 (73) 95 06/06/17 04:20 36.6 72 16 97/60 (72) 98 Room Air 06/06/17 04:00 Room Air 06/06/17 00:00 Room Air 06/05/17 22:42 36.4 116 20 104/65 (78) 95 Room Air 06/05/17 20:00 Room Air 06/05/17 19:07 36.7 98 20 105/58 (74) 99 Room Air 06/05/17 16:04 36.4 91 20 116/65 (82) 95 Room Air 06/05/17 16:00 Room Air 06/05/17 12:18 36.5 91 20 110/67 (81) 96 Room Air 06/05/17 12:00 Room Air Physical Exam General Appearance: no apparent distress Eyes: PERRL ENT: hearing grossly normal Neck: supple, trachea midline Respiratory/Chest: lungs clear, normal breath sounds, no respiratory distress, no accessory muscle use Cardiovascular: regular rate, rhythm, no gallop, no JVD Abdomen: normal bowel sounds, non tender, soft, no organomegaly Neurologic/Psych: alert, normal mood/affect, oriented x 3 Skin: normal color, no jaundice, warm/dry Laboratory Results Last 24 Hours Test 06/05/17 11:34 06/05/17 16:34 06/05/17 19:51 06/06/17 05:20 Bedside Glucose 117 mg/dl 112 mg/dl 164 mg/dl White Blood Count 9.42 K/uL Red Blood Count 3.10 M/uL Hemoglobin 9.6 g/dL Hematocrit 29.8 % Mean Corpuscular Volume 96.1 fL Mean Corpuscular Hemoglobin 31.0 pg Mean Corpuscular Hemoglobin Concent 32.2 g/dl RDW Standard Deviation 49.1 fL RDW Coefficient of Variation 14.1 % Platelet Count 303 K/uL Mean Platelet Volume 9.0 fL Sodium Level 148 mmol/L Potassium Level 3.4 mmol/L Chloride Level 120 mmol/L Carbon Dioxide Level 24 mmol/L Anion Gap 4.0 mmol/L Blood Urea Nitrogen 27 mg/dl Creatinine 1.42 mg/dl Est Creatinine Clear Calc Drug Dose 33.6 ml/min Estimated GFR () 46.1 Estimated GFR (Non- 39.8 BUN/Creatinine Ratio 18.8 Random Glucose 72 mg/dl Calcium Level 7.7 mg/dl Magnesium Level 1.6 mg/dl Assessment and Plan Patient is a 61 year old female w/ metabolic acidosis, hypotension and acute renal failure being evaluated for anemia in the setting of Crohn's disease, recently colonoscopy. She has been having brown semi-formed stools which are heme negative. No concern for acute GIB. Perhaps her drop in HCT is dilutional. Differentials discussed. Continues to feel well from a GI standpoint with plans for discharge today. - No role for endoscopic evaluation - Continue Stelara injection as prescribed - GI to sign off. Please call with any acute changes, questions or concerns ATTESTATION I have performed a history and physical examination of this patient and reviewed the electronic record. Specifically, on physical examination. there is no abdominal tenderness I have discussed the case with Veronica POWERS. The above note reflects my findings, conclusions, and recommendations. Melquiades Martin MD
[2017-06-06] MEDS ORDERED: POTASSIUM CHLORIDE 10 MEQ TABCR PO STA (09:59)
[2017-06-06] MEDS ORDERED: MAGNESIUM SULFATE 1GM / D5W 100 ML IV ONE (10:15)
[2017-06-06] MEDS ORDERED: ASPI81TA28 PO (10:18)
--- NOTE | 2017-06-06 10:21 | Discharge Instructions ---
Discharge Instructions Date of Service Jun 06, 2017. Admission Reason for Admission: Dao (Acute Kidney Injury) Discharge Discharge Diagnosis / Problem: ACUTE RENAL FAILURE /METABOLIC ACIDOSIS /SEVERE DEHYDRATION /ANEMIA Discharge Goals Goal(s): Increase independence, Improve disease control, Diagnostic testing, Therapeutic intervention Activity Recommendations Activity Limitations: resume your previous activity . Instructions / Follow-Up Instructions / Follow-Up HOSPITAL FOLLOW UP WITH DR NAVARRETE ON Saturday06/11/17 @ 2: 05 PM @ 10: 45 AM FOLLOW UP WITH NEPHROLOGY /KIDNEY SPECIALIST DR ARIZMENDI IN OFFICE ON Saturday @ 10: 40 AM LAB WORK: BASIC METABOLIC PANEL ON 06/11/17 DO NOT TAKE MOTRIN , ADVIL , IBUPROFEN , NAPROXEN YOU ARE STARTED ON LEVOTHYROXINE 100 MCG DAILY NEED TO HAVE REPEAT TSH LEVEL CHECK IN 6-8 WEEKS CAN TAKE LOW DOSE ASPIRIN 81 MG ENTERIC COATED -DAILY /OVER THE COUNTER TAKE WITH FULL STOMACH STOP TAKING ASPIRIN IF YOU NOTICE DARK STOOL OR BLOOD IN STOOL Current Hospital Diet Patient's current hospital diet: Renal Diet, Diabetes Type 2 Diet Discharge Diet Recommended Diet: AHA Diet (Heart Healthy), Diabetes Type 2 Diet Pending Studies Studies pending at discharge: no Laboratory Results Hemoglobin A1c Test 06/04/17 05:56 Range/Units Estimated Average Glucose 151 mg/dl Hemoglobin A1c 6.9 H 4.5-5.6 % Medical Emergencies . Who to Call and When: Medical Emergencies: If at any time you feel your situation is an emergency, please call 911 immediately. . Non-Emergent Contact Non-Emergency issues call your: Primary Care Provider Call Non-Emergent contact if: you have any medication questions . . "Provider Documentation" section prepared by Shy Soliman. .
[2017-06-06] MEDS ORDERED: SYN100 PO (10:24)
[2017-06-06 11:18] VITALS: BP 101/65; PULSE 98; TEMP 36.8; O2SAT 100
[2017-06-06 11:19] VITALS: BP 101/65; PULSE 98; TEMP 36.8; O2SAT 100
--- NOTE | 2017-06-06 11:19 | Discharge Summary ---
Discharge Summary Date of Service Jun 06, 2017. Discharge Summary Admission Date: Jun 03, 2017 at 18:07 Discharge Date: Jun 06, 2017 Discharge Disposition: Home Principal Diagnosis: ACUTE RENAL FAILURE /METABOLIC ACIDOSIS /SEVERE DEHYDRATION /ANEMIA Medication Reconciliation New Medications: Aspirin (Aspirin Ec) 81 Mg Tab 1 TAB PO DAILY for 30 Days, #30 TAB TAKE WITH FULL STOMACH OVER THE COUNTER STOP TAKING ASPIRIN IF YOU NOTICE DARK STOOL OR BLOOD IN STOOL Levothyroxine Sodium (Synthroid) 100 Mcg Tab 100 MCG PO DAILYBB for 30 Days, #30 TAB 2 Refills Continued Medications: Albuterol Hfa (Ventolin Hfa) 200 Puffs/71837 Mcg Aers 2-4 PUFFS INH Q6H PRN for Shortness of Breath, #1 INHALER Albuterol Sulf (Proventil 0.083% 2.5MG/3ML) 2.5 Mg/3 Ml Nebu 2.5 MG INH QID PRN for Shortness of Breath, EA Alendronate Sodium (Fosamax) 70 Mg Tab 70 MG PO WK, TAB Take every sat Atorvastatin (Lipitor) 40 Mg Tab 40 MG PO QPM, TAB Cetirizine Hcl (Zyrtec) 10 Mg Tab 10 MG PO QAM, TAB Cholecalciferol (Vitamin D3) 1,000 Unit Tab 2000 UNITS PO DAILY, TAB 3 Refills Citalopram Hydrobromide (Citalopram Hydrobromide) 20 Mg Tab 20 MG PO DAILY AFTERNOON, TAB 3 Refills Cyanocobalamin (Vitamin B12) 1,000 Mcg Tab 1 TAB PO QPM Cyclobenzaprine Hcl (Flexeril) 5 Mg Tab 5 MG PO BID PRN for Restless legs syndrome, TAB PRN Digoxin (Digoxin) 0.125 Mg Tab 125 MCG PO QAM Empagliflozin (Jardiance) 25 Mg Tab 25 MG PO DAILY Fluticasone Propionate (Flovent Hfa) 120 Puffs/5280 Mcg Aero 2 PUFFS INH BID for 30 Days, #1 INHALER 2 Refills Fluticasone Propionate (Nasal) (Flonase Allergy Relief) 50 Mcg/Act Spr 1 SPRAY RUBEN DAILY PRN for PRN Gabapentin (Neurontin) 100 Mg Cap 100 MG PO TID, CAP Glipizide (Glipizide Er) 10 Mg Tab 10 MG PO QAM, TAB 3 Refills Glipizide (Glucotrol) 10 Mg Tab 5 MG PO QDD, TAB Magnesium Oxide (Mg Supplement (Magnesium Oxide) 400 Mg Tab 400 MG PO DAILY, TAB Metformin HCl (Metformin HCl ER) 500 Mg Tabcr 500 MG PO QAM Metformin HCl (Metformin HCl ER) 500 Mg Tabcr 1000 MG PO QPM Metoprolol Succinate (Toprol Xl) 25 Mg Tabcr 25 MG PO BID, #30 TAB Ropinirole (Requip) 0.5 Mg Tab 0.5 MG PO TID, TAB Ropinirole (Requip) 1 Mg Tab 1 MG PO HS, TAB Ustekinumab (Stelara) 45 Mg/0.5 Ml Inj 90 MG SQ every 8 weeks next injection due 06/28/17 Discontinued Medications: Aspirin (Aspirin Chewable) 81 Mg Chew 162 MG PO HS, TAB Furosemide (Lasix) 20 Mg Tab 20 MG PO QAM, TAB Lisinopril (Zestril) 2.5 Mg Tab 2.5 MG PO QAM Potassium Ext Rel (Klor-Con) 20 Meq Tabcr 30 MEQ PO QAM, TAB Spironolactone (Aldactone) 50 Mg Tab 50 MG PO DAILY AFTERNOON, TAB Admission Information HPI (per Admitting provider): 61-year-old female presents to the ER with concerns about low blood pressure and severe fatigue over the last week. She reports sleeping multiple times a day with lethargy and reports some confusion that resolved within 30 minutes 2 times last week. She is currently alert and appropriate. She was seen by her primary care provider earlier today who was concerned based on her symptoms and her blood pressure in the 80s systolic. She also reports dry skin that is itchy, significant cold intolerance, 5 pound weight loss, poor p.o. intake with lack of appetite, painful muscles in the lower legs bilaterally all over the last week. She denies any medication changes. She denies any fevers or chills, no abdominal pain. She has a history of Crohn's disease with chronic diarrhea that is stable without changes. She had one episode of vomiting while swallowing her pills yesterday but otherwise no nausea and vomiting. She reports insomnia secondary to sleeping most of the day. In the ER blood pressures remaining in the 80 systolic despite 2 L fluid bolus of normal saline. Lab results reveal a normal sodium, normal H&H, bicarb 15, BUN 60, creatinine 2.94 with a normal baseline, glucose 128. TSH was drawn and was 11. Free T4 was added and was low at 0.6. A cortisol level was randomly drawn and was 18. Physical Exam (per Admitting): General Appearance: WD/WN, no apparent distress Head: normocephalic, atraumatic Eyes: normal inspection, PERRL, sclerae normal ENT: normal ENT inspection, pharynx normal, + pertinent finding Neck: supple (Mucous membrane is moist), no adenopathy, thyroid normal, no JVD, trachea midline Respiratory/Chest: chest non-tender, lungs clear, normal breath sounds, no respiratory distress, no accessory muscle use Cardiovascular: regular rate, rhythm, no edema, no gallop, no JVD, no murmur , normal peripheral pulses Abdomen/GI: normal bowel sounds, non tender, soft, no organomegaly Back: normal inspection Extremities/Musculoskelatal: normal inspection, + pertinent finding (Pain to palpation of lower posterior extremities bilaterally (soleus muscle-not including achilles tendon). No pain with flexion/extension of feet.) Neurologic/Psych: chef under II-XII nml as tested, no motor/sensory deficits, alert , normal mood/affect, oriented x 3 Skin: normal color, warm/dry, no rash Hospital Course HYPOTENSION resolved , BP stable Possible secondary to volume depletion/ Had nausea vomiting diarrhea for approximately 48 hours Blood pressure improved Presented with weakness fatigue/hypotension with systolic blood pressure in 70s Minimum response with 2 L IV fluid bolus No evidence of sepsis/no recent episode of diarrhea or nausea vomiting Patient was started stress dose of hydrocortisone for concern of possible adrenal insufficiency Overnight stay in ICU blood pressure improved to 93/47 (approximately patient's baseline) repeat blood pressure 101/61 No complain of dizzy spell/or lightheadedness Echo shows normal ejection fraction No new wall motion abnormality Has normal cortisol level CT abdomen and pelvis-negative study No conclusive evidence of adrenal insufficiency discontinued IV cortisol ACUTE RENAL FAILURE -Improved with IV hydration -Possible due to poor p.o. intake due to lack of appetite -Patient mentions for last 1 week food did not taste the same -Drinks only soda at home -Continue to hold diuretics/avoid NSAIDs/contrast study Cr 1.8-> 1.5 today had normal Cr level on 03/2017 appreciate input from Nephrology Cr may remains elevated for some time clinically no evidence of uremia or vol overload possible discharge home tomorrow will need follow up with Nephrology as out pt HYPERKALEMIA/HYPERCHLOREMIA -Improved -Possible due to above -Aldactone kept on hold since admission -Ordered for low potassium/renal diet METABOLIC ACIDOSIS -possible Due to acute renal failure -No evidence of sepsis/normal lactic acid Hco3 22 -normalized -Nephrology flow following/appreciate input LOW MG -Replaced - CONFUSION/METABOLIC ENCEPHALOPATHY Resolved mental status at baseline Ambulating independently in hallway -Presented with brief episode of confusion/forgetfulness -Which has resolved completely -Metabolic encephalopathy/metabolic acidosis/electrolytes abnormality -Continue to correct electrolytes/acidosis as per nephrology TYPE 2 DIABETES -Hold metformin -Insulin sliding scale -Hemoglobin A1c 6.9 INCREASED FATIGUE/WEAKNESS/ABNORMAL THYROID FUNCTION TEST -Presents with elevated TSH 11/normal T4 -Acid associated with symptoms of weakness fatigue decreased appetite -On admission case was discussed with Dr. Freeman Endocr[facility] in [facility]-by admitting physician -Patient is started with levothyroxine 100 mcg daily -Given stress dose of IV hydrocortisone D/aaron as no evidence of adrenal insufficiency noted -Repeat TSH level in 4-6 weeks HISTORY OF NONISCHEMIC CARDIOMYOPATHY: Repeat transthoracic echo today 06/04/2017 shows: No wall motion abnormality, normal LV function EF of 60% No evidence of volume overload clinically Lasix/Aldactone on hold for DAO HISTORY OF CROHN'S DISEASE stable, no GI symptoms-no diarrhea or blood in stool/no complaint of abdominal pain. \\ -On Stelara/Ustekinumab as outpatient / next dose due June 28. DVT PROPHYLAXIS Subcu heparin DISPOSITION Plan to discharge home tomorrow Patient will need outpatient nephrology follow-up Medicine follow-up with Dr. Resendiz at [facility] Total time spent on discharge = 40 mins This includes examination of the patient, discharge planning, medication reconciliation, and communication with other providers. Discharge Instructions DI: Medical v5 Discharge Instructions Date of Service Jun 06, 2017. Admission Reason for Admission: Dao (Acute Kidney Injury) Discharge Discharge Diagnosis / Problem: ACUTE RENAL FAILURE /METABOLIC ACIDOSIS /SEVERE DEHYDRATION /ANEMIA Discharge Goals Goal(s): Increase independence, Improve disease control, Diagnostic testing, Therapeutic intervention Activity Recommendations Activity Limitations: resume your previous activity . Instructions / Follow-Up Instructions / Follow-Up HOSPITAL FOLLOW UP WITH DR NAVARRETE ON DAYA 4/24/18 @ 2: 05 PM @ 10: 45 AM FOLLOW UP WITH NEPHROLOGY /KIDNEY SPECIALIST DR ARIZMENDI IN OFFICE ON Saturday @ 10: 40 AM LAB WORK: BASIC METABOLIC PANEL ON 06/11/17 DO NOT TAKE MOTRIN , ADVIL , IBUPROFEN , NAPROXEN YOU ARE STARTED ON LEVOTHYROXINE 100 MCG DAILY NEED TO HAVE REPEAT TSH LEVEL CHECK IN 6-8 WEEKS CAN TAKE LOW DOSE ASPIRIN 81 MG ENTERIC COATED -DAILY /OVER THE COUNTER TAKE WITH FULL STOMACH STOP TAKING ASPIRIN IF YOU NOTICE DARK STOOL OR BLOOD IN STOOL Current Hospital Diet Patient's current hospital diet: Renal Diet, Diabetes Type 2 Diet Discharge Diet Recommended Diet: AHA Diet (Heart Healthy), Diabetes Type 2 Diet Pending Studies Studies pending at discharge: no Laboratory Results Hemoglobin A1c Test 06/04/17 05:56 Range/Units Estimated Average Glucose 151 mg/dl Hemoglobin A1c 6.9 H 4.5-5.6 % Medical Emergencies . Who to Call and When: Medical Emergencies: If at any time you feel your situation is an emergency, please call 911 immediately. . Non-Emergent Contact Non-Emergency issues call your: Primary Care Provider Call Non-Emergent contact if: you have any medication questions . . "Provider Documentation" section prepared by Shy Soliman. .
== END 2017-06-06 12:45 | disposition home or self-care (01) | DRG 314 ==
LOC: C.EDB 14:55 → C.MED 18:07 → ENRESERV 18:17 → C.MSICU 06-04 00:23 → ENRESERV 06-04 16:12 → C.MED 06-04 17:47
PROVIDERS: ADMIT Hospitalist; ATTEND Hospitalist
DX: I95.9 Hypotension, unspecified (principal); G93.41 Metabolic encephalopathy; N17.9 Acute kidney failure, unspecified; E87.2 Acidosis; K50.00 Crohn's disease of small intestine without complications; I42.9 Cardiomyopathy, unspecified; E03.9 Hypothyroidism, unspecified; E87.5 Hyperkalemia; E83.42 Hypomagnesemia; E87.8 Other disorders of electrolyte and fluid balance, not elsewhere classified; K76.0 Fatty (change of) liver, not elsewhere classified; F17.200 Nicotine dependence, unspecified, uncomplicated; G25.81 Restless legs syndrome; I25.10 Atherosclerotic heart disease of native coronary artery without angina pectoris; E11.9 Type 2 diabetes mellitus without complications; J44.9 Chronic obstructive pulmonary disease, unspecified; M81.0 Age-related osteoporosis without current pathological fracture; Z87.442 Personal history of urinary calculi; Z79.51 Long term (current) use of inhaled steroids; Z79.83 Long term (current) use of bisphosphonates; Z79.84 Long term (current) use of oral hypoglycemic drugs; Z79.899 Other long term (current) drug therapy; Z88.0 Allergy status to penicillin; Z88.1 Allergy status to other antibiotic agents; Z88.8 Allergy status to other drugs, medicaments and biological substances; Z90.49 Acquired absence of other specified parts of digestive tract; Z90.710 Acquired absence of both cervix and uterus; Z91.048 Other nonmedicinal substance allergy status; Z83.3 Family history of diabetes mellitus; Z82.49 Family history of ischemic heart disease and other diseases of the circulatory system; Z83.79 Family history of other diseases of the digestive system